=== PATIENT | female | born 1940 | race African-American/Black ===

== ENCOUNTER 2017-07-17 22:41 | Inpatient (IN) ==
[2017-07-17 23:21] LABS: Basophils # 0.1 10*3/uL (0.0-0.2); Basophils % 0.8 % (0.0-0.8); Eosinophils # 0.1 10*3/uL (0.0-0.87); Eosinophils % 2.1 % (0.00-10.9); Hematocrit 33.9 VOL% (35.7-47.0); Hemoglobin 11.8 GM/DL (12.0-16.0); Immature Granulocytes % 0.3 %; Immature Granulocytes Absolute 0.02 #; Lymphocytes # 1.6 10*3/uL (1.4-4.0); Lymphocytes % 24.8 % (21.3-54.2); Mean Corpuscular HGB Conc 34.8 GM/DL (32-36); Mean Corpuscular Hemoglobin 26 PG (27-34); Mean Platelet Volume 12.7 FL (9.6-12.0); Monocytes # 0.5 10*3/uL (0.11-0.8); Monocytes % 7.7 % (1.7-12.7); Neutrophils # 4.2 10*3/uL (1.4-7.4); Neutrophils % 64.3 % (38.7-73.9); Platelet Count 163 T/CUMM (130-400); Red Blood Count 4.58 MC/CUMM (3.8-5.5); Red Cell Distribution Width 14.6 % (9.3-17.3); White Blood Count 6.5 T/CUMM (4-12)
[2017-07-17 23:33] LABS: Blood Urea Nitrogen 12 MG/DL (7-18); Calcium 8.6 MG/DL (8.5-10.1); Glucose 78 MG/DL (74-106); Osmolality,Calculated 275.5 MOS/KG (273-304); Potassium 3.3 MMOL/L (3.5-5.1); Sodium 139 MMOL/L (136-145); Troponin I Only < 0.015 NG/ML (0.00-0.045)
[2017-07-18] MEDS ORDERED: GLUCAGON 1 MG VIAL IM PRN (04:07)
[2017-07-18] MEDS ORDERED: CLOPIDOGREL 75 MG TABLET PO STA (04:07)
[2017-07-18] MEDS ORDERED: ACETAMINOPHEN 325 MG TABLET PO PRN (04:07)
[2017-07-18] MEDS ORDERED: ONDANSETRON 4 MG/2 ML VIAL IV PRN (04:07)
[2017-07-18] MEDS ORDERED: DEXTROSE 50% 25 GM/50 ML VIAL IV PRN (04:07)
[2017-07-18] MEDS: POTASSIUM CHLORIDE 20 MEQ TABLET PO PRN ×2 (05:14→09:14)
[2017-07-18] MEDS: ENOXAPARIN 40 MG/0.4 ML SYRINGE SUBCUT SCH (05:15)
[2017-07-18] MEDS ORDERED: INFLUENZA VIRUS VACCINE 0.5 ML SYRINGE IM ONE (05:48)
[2017-07-18] MEDS ORDERED: NITROGLYCERIN SL 0.4 MG TABLET SL PRN (10:42)
[2017-07-18] MEDS ORDERED: ALBUTEROL 2.5 MG/3 ML NEB RESP TX PRN (10:42)
[2017-07-18] MEDS ORDERED: TOPIRAMATE 100 MG TABLET PO ONE (13:48)
[2017-07-18] MEDS ORDERED: levETIRAcetam 500 MG TABLET PO ONE (13:49)
[2017-07-18] MEDS ORDERED: lamoTRIgine 25 MG TABLET PO ONE (13:50)
[2017-07-18] MEDS: PRIMIDONE 50 MG TABLET PO SCH ×2 (14:34→21:23)
[2017-07-18] MEDS ORDERED: LORazepam 2 MG/1 ML VIAL IV PRN (15:00)
[2017-07-18] MEDS: GABAPENTIN 600 MG TABLET PO SCH ×2 (16:15→21:10)
[2017-07-18] MEDS: Acarbose 100 MG PO SCH (20:20)
[2017-07-18] MEDS ORDERED: BUDESONIDE/FORMOTEROL 80-4.5 INHALER 6.9 GM INH SCH (21:00)
[2017-07-18] MEDS: FOLIC ACID 0.4 MG TABLET PO SCH (21:06)
[2017-07-18] MEDS: levETIRAcetam 500 MG TABLET PO SCH (21:06)
[2017-07-18] MEDS: TOPIRAMATE 100 MG TABLET PO SCH (21:09)
[2017-07-18] MEDS: BRIMONIDINE 0.15% OPH SOLN 1 DROP/DROPS BOTTLE BOTH EYES SCH (21:16)
[2017-07-18] MEDS: TRAVOPROST 0.004% OPH SOLN 2.5 ML BOTTLE BOTH EYES SCH (21:25)
[2017-07-19] MEDS: ENOXAPARIN 40 MG/0.4 ML SYRINGE SUBCUT SCH (05:11)
[2017-07-19 05:18] LABS: Basophils # 0.1 10*3/uL (0.0-0.2); Basophils % 1.1 % (0.0-0.8); Eosinophils # 0.2 10*3/uL (0.0-0.87); Eosinophils % 3.5 % (0.00-10.9); Hematocrit 31.2 VOL% (35.7-47.0); Immature Granulocytes % 0.2 %; Immature Granulocytes Absolute 0.01 #; Lymphocytes # 1.5 10*3/uL (1.4-4.0); Lymphocytes % 32.2 % (21.3-54.2); Mean Corpuscular HGB Conc 35.3 GM/DL (32-36); Mean Corpuscular Hemoglobin 26 PG (27-34); Mean Corpuscular Volume 73.9 FL (87-102); Mean Platelet Volume 11.6 FL (9.6-12.0); Monocytes # 0.3 10*3/uL (0.11-0.8); Monocytes % 7.1 % (1.7-12.7); Neutrophils # 2.5 10*3/uL (1.4-7.4); Neutrophils % 55.9 % (38.7-73.9); Platelet Count 133 T/CUMM (130-400); Red Blood Count 4.22 MC/CUMM (3.8-5.5); Red Cell Distribution Width 14.7 % (9.3-17.3); White Blood Count 4.5 T/CUMM (4-12)
[2017-07-19 06:15] LABS: Alanine Aminotransferase 11 U/L (13-56); Albumin 2.9 G/DL (3.4-5.0); Alkaline Phosphatase 77 U/L (45-117); Aspartate Amino Transferase 19 U/L (0-37); Bilirubin,Total < 0.39 MG/DL (0.2-1.0); Blood Urea Nitrogen 11 MG/DL (7-18); Calcium 8.2 MG/DL (8.5-10.1); Glucose 82 MG/DL (74-106); Magnesium 2.1 MG/DL (1.8-2.4); Osmolality,Calculated 280.1 MOS/KG (273-304); Potassium 3.9 MMOL/L (3.5-5.1); Sodium 142 MMOL/L (136-145); Thyroid Stimulating Hormone 0.851 uIU/ml (0.358-3.74); Total Protein 5.3 G/DL (6.4-8.3)
[2017-07-19] MEDS: Acarbose 100 MG PO SCH ×4 (08:10→20:59)
[2017-07-19] MEDS: BUDESONIDE/FORMOTEROL 80-4.5 INHALER 6.9 GM INH SCH ×2 (09:35→21:02)
[2017-07-19] MEDS: BRIMONIDINE 0.15% OPH SOLN 1 DROP/DROPS BOTTLE BOTH EYES SCH ×2 (09:35→21:00)
[2017-07-19] MEDS: TOPIRAMATE 100 MG TABLET PO SCH ×2 (09:36→21:02)
[2017-07-19] MEDS: CHOLECALCIFEROL 1,000 UNIT TABLET PO SCH (09:36)
[2017-07-19] MEDS: DULoxetine 30 MG CAPSULE PO SCH (09:37)
[2017-07-19] MEDS: FOLIC ACID 0.4 MG TABLET PO SCH ×2 (09:37→21:00)
[2017-07-19] MEDS: GABAPENTIN 600 MG TABLET PO SCH ×3 (09:37→21:00)
[2017-07-19] MEDS: ASPIRIN EC 325 MG TABLET PO SCH (09:37)
[2017-07-19] MEDS: lamoTRIgine 25 MG TABLET PO SCH (09:37)
[2017-07-19] MEDS: PRIMIDONE 50 MG TABLET PO SCH ×3 (09:37→21:01)
[2017-07-19] MEDS: levETIRAcetam 500 MG TABLET PO SCH ×2 (09:37→21:01)
[2017-07-19] MEDS: TRAVOPROST 0.004% OPH SOLN 2.5 ML BOTTLE BOTH EYES SCH ×2 (21:02→21:11)
[2017-07-20] MEDS: ENOXAPARIN 40 MG/0.4 ML SYRINGE SUBCUT SCH (06:58)
[2017-07-20] MEDS: Acarbose 100 MG PO SCH ×5 (09:20→20:51)
[2017-07-20] MEDS: BRIMONIDINE 0.15% OPH SOLN 1 DROP/DROPS BOTTLE BOTH EYES SCH ×2 (09:21→20:51)
[2017-07-20] MEDS: DULoxetine 30 MG CAPSULE PO SCH (09:22)
[2017-07-20] MEDS: ASPIRIN EC 325 MG TABLET PO SCH (09:22)
[2017-07-20] MEDS: levETIRAcetam 500 MG TABLET PO SCH ×2 (09:23→20:51)
[2017-07-20] MEDS: lamoTRIgine 25 MG TABLET PO SCH (09:23)
[2017-07-20] MEDS: FOLIC ACID 0.4 MG TABLET PO SCH ×2 (09:23→20:50)
[2017-07-20] MEDS: PRIMIDONE 50 MG TABLET PO SCH ×3 (09:24→20:50)
[2017-07-20] MEDS: GABAPENTIN 600 MG TABLET PO SCH ×3 (09:24→20:50)
[2017-07-20] MEDS: BUDESONIDE/FORMOTEROL 80-4.5 INHALER 6.9 GM INH SCH ×2 (09:24→20:51)
[2017-07-20] MEDS: CHOLECALCIFEROL 1,000 UNIT TABLET PO SCH (09:25)
[2017-07-20] MEDS: TOPIRAMATE 100 MG TABLET PO SCH ×2 (09:25→20:50)
[2017-07-20] MEDS: TRAVOPROST 0.004% OPH SOLN 2.5 ML BOTTLE BOTH EYES SCH (20:52)
[2017-07-21 02:42] LABS: Basophils # 0.1 10*3/uL (0.0-0.2); Eosinophils # 0.2 10*3/uL (0.0-0.87); Eosinophils % 2.9 % (0.00-10.9); Hematocrit 30.9 VOL% (35.7-47.0); Immature Granulocytes % 0.2 %; Immature Granulocytes Absolute 0.01 #; Lymphocytes % 37.6 % (21.3-54.2); Mean Corpuscular HGB Conc 35.6 GM/DL (32-36); Mean Corpuscular Hemoglobin 26 PG (27-34); Mean Corpuscular Volume 73.4 FL (87-102); Mean Platelet Volume 12.5 FL (9.6-12.0); Monocytes # 0.4 10*3/uL (0.11-0.8); Monocytes % 7.3 % (1.7-12.7); Neutrophils # 2.6 10*3/uL (1.4-7.4); Platelet Count 149 T/CUMM (130-400); Red Blood Count 4.21 MC/CUMM (3.8-5.5); Red Cell Distribution Width 14.6 % (9.3-17.3); White Blood Count 5.2 T/CUMM (4-12)
[2017-07-21 03:08] LABS: Calcium 8.4 MG/DL (8.5-10.1); Osmolality,Calculated 272.7 MOS/KG (273-304)
[2017-07-21] MEDS: Acarbose 100 MG PO SCH ×3 (07:56→16:52)
[2017-07-21] MEDS: ENOXAPARIN 40 MG/0.4 ML SYRINGE SUBCUT SCH (10:48)
[2017-07-21] MEDS: DULoxetine 30 MG CAPSULE PO SCH (10:49)
[2017-07-21] MEDS: CHOLECALCIFEROL 1,000 UNIT TABLET PO SCH (10:49)
[2017-07-21] MEDS: lamoTRIgine 25 MG TABLET PO SCH (10:50)
[2017-07-21] MEDS: TOPIRAMATE 100 MG TABLET PO SCH (10:50)
[2017-07-21] MEDS: BUDESONIDE/FORMOTEROL 80-4.5 INHALER 6.9 GM INH SCH (10:50)
[2017-07-21] MEDS: BRIMONIDINE 0.15% OPH SOLN 1 DROP/DROPS BOTTLE BOTH EYES SCH (10:50)
[2017-07-21] MEDS: ASPIRIN EC 325 MG TABLET PO SCH (10:50)
[2017-07-21] MEDS: GABAPENTIN 600 MG TABLET PO SCH ×2 (10:50→15:51)
[2017-07-21] MEDS: levETIRAcetam 500 MG TABLET PO SCH (10:51)
[2017-07-21] MEDS: PRIMIDONE 50 MG TABLET PO SCH ×2 (10:51→15:51)
[2017-07-21] MEDS: FOLIC ACID 0.4 MG TABLET PO SCH (10:51)
[2017-07-21] MEDS ORDERED: INFLUENZA VIRUS VACCINE 0.5 ML SYRINGE IM ONE (16:14)
[2017-07-21 17:29] VITALS: BP 108/64
== END 2017-07-21 18:20 | disposition home health service (06) | DRG 880 ==
LOC: EDBD → EDUNIT# → N.ED 22:41 → N.EDINP 07-18 01:53 → SUATTDRO 07-18 01:53 → N.TELES 07-18 02:16 → N.ICU 07-18 14:50 → N.2E 07-19 21:26
PROVIDERS: ADMIT Internal Medicine; ATTEND Internal Medicine Cardiovascular Disease

== ENCOUNTER 2017-10-17 14:02 | Inpatient (IN) ==
[2017-10-17 15:38] LABS: Basophils # 0.1 10*3/uL (0.0-0.2); Basophils % 0.8 % (0.0-0.8); Eosinophils # 0.2 10*3/uL (0.0-0.87); Hematocrit 30.3 VOL% (35.7-47.0); Hemoglobin 10.4 GM/DL (12.0-16.0); Immature Granulocytes % 0.3 %; Immature Granulocytes Absolute 0.02 #; Lymphocytes # 1.4 10*3/uL (1.4-4.0); Lymphocytes % 19.5 % (21.3-54.2); Mean Corpuscular HGB Conc 34.3 GM/DL (32-36); Mean Corpuscular Hemoglobin 26 PG (27-34); Mean Corpuscular Volume 74.3 FL (87-102); Mean Platelet Volume 12.2 FL (9.6-12.0); Monocytes # 0.5 10*3/uL (0.11-0.8); Monocytes % 6.8 % (1.7-12.7); Neutrophils # 5.1 10*3/uL (1.4-7.4); Neutrophils % 69.6 % (38.7-73.9); Platelet Count 132 T/CUMM (130-400); Red Blood Count 4.08 MC/CUMM (3.8-5.5); Red Cell Distribution Width 16.5 % (9.3-17.3); White Blood Count 7.3 T/CUMM (4-12)
[2017-10-17 15:44] LABS: PT Patient Result 10.4 SECS; Partial Thromboplastin Time 30.3 SECS (0-40)
[2017-10-17 15:57] LABS: Alanine Aminotransferase 13 U/L (13-56); Albumin 3.2 G/DL (3.4-5.0); Alkaline Phosphatase 82 U/L (45-117); Aspartate Amino Transferase 17 U/L (0-37); Bilirubin,Total < 0.39 MG/DL (0.2-1.0); Blood Urea Nitrogen 7 MG/DL (7-18); Calcium 8.6 MG/DL (8.5-10.1); Glucose 83 MG/DL (74-106); Osmolality,Calculated 275.4 MOS/KG (273-304); Potassium 4.1 MMOL/L (3.5-5.1); Sodium 140 MMOL/L (136-145); Total Protein 6.1 G/DL (6.4-8.3)
[2017-10-17] MEDS ORDERED: LABETALOL 20 MG/4 ML SYRINGE IV PRN (16:23)
[2017-10-17] MEDS ORDERED: CETIRIZINE 10 MG TABLET PO PRN (16:31)
[2017-10-17] MEDS ORDERED: diphenhydrAMINE CAP 25 MG CAPSULE PO PRN (16:31)
[2017-10-17] MEDS ORDERED: CALCIUM CARBONATE CHEW 500 MG TABLET PO PRN (16:31)
[2017-10-17] MEDS ORDERED: ALBUTEROL 2.5 MG/3 ML NEB RESP TX PRN (16:31)
[2017-10-17] MEDS ORDERED: CHLORPHENIRAMINE MALEATE 4 MG PO PRN (16:31)
[2017-10-17 18:09] LABS: Apearance,Urine CLEAR (Clear); Bilirubin,Urine Negative (Negative); Blood, Urine Negative (Negative); Glucose,Urine (UA) Negative (Negative); Ketones,Urine Negative (Negative); Nitrite,Urine Negative (Negative); Protein,Urine Negative; RBC,Urine <1 /HPF (0-4); Squamous Epithelial Cell,Urine Occasional /HPF (0-10); Urine Color Colorless (Yellow); Urine Specific Gravity 1.002 (1.001-1.035); Urine Urobilinogen < 2.0 EU/DL (0.2-1.0)
[2017-10-17 18:14] LABS: Barbiturates Screen,Urine Positive (Negative); Benzodiazepines Screen,Urine Negative (Negative); Cannabinoid Screen,Urine Negative (Negative); Opiate Screen,Urine Negative (Negative); Phencyclidine Screen,Urine Negative (Negative)
[2017-10-17] MEDS ORDERED: Acarbose 100 MG PO SCH (21:00)
[2017-10-17] MEDS: POTASSIUM CHLORIDE 10 MEQ TABLET PO SCH (22:21)
[2017-10-17] MEDS: levETIRAcetam 500 MG TABLET PO SCH (22:21)
[2017-10-17] MEDS: ROSUVASTATIN 10 MG TABLET PO SCH (22:21)
[2017-10-17] MEDS: BRIMONIDINE 0.15% OPH SOLN 1 DROP/DROPS BOTTLE BOTH EYES SCH (22:21)
[2017-10-17] MEDS: GABAPENTIN 300 MG CAPSULE PO SCH (22:22)
[2017-10-17] MEDS: PANTOPRAZOLE 40 MG TABLET PO SCH (22:22)
[2017-10-17] MEDS: PRIMIDONE 50 MG TABLET PO SCH (22:22)
[2017-10-17] MEDS: BUDESONIDE/FORMOTEROL 80-4.5 INHALER 6.9 GM INH SCH (22:23)
[2017-10-17] MEDS: TOPIRAMATE 200 MG TABLET PO SCH (22:23)
[2017-10-17] MEDS: SODIUM CHLORIDE 0.9% 1,000 ML IV SCH (23:39)
[2017-10-17] MEDS: ENOXAPARIN 40 MG/0.4 ML SYRINGE SUBCUT SCH (23:39)
[2017-10-18 05:10] LABS: Basophils % 0.7 % (0.0-0.8); Eosinophils # 0.3 10*3/uL (0.0-0.87); Eosinophils % 4.1 % (0.00-10.9); Hematocrit 28.1 VOL% (35.7-47.0); Hemoglobin 9.6 GM/DL (12.0-16.0); Immature Granulocytes % 0.2 %; Immature Granulocytes Absolute 0.01 #; Lymphocytes # 1.5 10*3/uL (1.4-4.0); Mean Corpuscular HGB Conc 34.2 GM/DL (32-36); Mean Corpuscular Hemoglobin 25 PG (27-34); Mean Corpuscular Volume 74.3 FL (87-102); Mean Platelet Volume 13.1 FL (9.6-12.0); Monocytes # 0.5 10*3/uL (0.11-0.8); Monocytes % 8.9 % (1.7-12.7); Neutrophils # 3.7 10*3/uL (1.4-7.4); Neutrophils % 61.1 % (38.7-73.9); Platelet Count 125 T/CUMM (130-400); Red Blood Count 3.78 MC/CUMM (3.8-5.5); Red Cell Distribution Width 16.2 % (9.3-17.3); White Blood Count 6.1 T/CUMM (4-12)
[2017-10-18 06:00] LABS: Hypochromasia 1+; Microcytosis 1+; Ovalocytes Slight; Target Cells Slight
[2017-10-18 06:01] LABS: Acanthocytes Few; Platelet Estimate Normal
[2017-10-18 06:06] LABS: Risk Ratio 1.24; VLDL CHOLESTEROL 5.4 MG/DL
[2017-10-18 06:07] LABS: Calcium 7.9 MG/DL (8.5-10.1); Osmolality,Calculated 282.8 MOS/KG (273-304); Potassium 3.5 MMOL/L (3.5-5.1)
[2017-10-18] MEDS: POTASSIUM CHLORIDE 10 MEQ TABLET PO SCH ×2 (12:19→21:58)
[2017-10-18] MEDS: ASPIRIN 325 MG TABLET PO SCH (12:19)
[2017-10-18] MEDS: lamoTRIgine 25 MG TABLET PO SCH (12:19)
[2017-10-18] MEDS: PRIMIDONE 50 MG TABLET PO SCH ×3 (12:19→21:57)
[2017-10-18] MEDS: levETIRAcetam 500 MG TABLET PO SCH ×2 (12:19→21:57)
[2017-10-18] MEDS: GABAPENTIN 300 MG CAPSULE PO SCH ×3 (12:20→21:57)
[2017-10-18] MEDS: BRIMONIDINE 0.15% OPH SOLN 1 DROP/DROPS BOTTLE BOTH EYES SCH ×2 (12:20→21:58)
[2017-10-18] MEDS: BUDESONIDE/FORMOTEROL 80-4.5 INHALER 6.9 GM INH SCH ×2 (12:20→21:58)
[2017-10-18] MEDS: TOPIRAMATE 200 MG TABLET PO SCH ×2 (12:20→21:58)
[2017-10-18] MEDS: ACETAMINOPHEN 325 MG TABLET PO PRN (16:35)
[2017-10-18] MEDS: PANTOPRAZOLE 40 MG TABLET PO SCH (16:36)
[2017-10-18] MEDS: SODIUM CHLORIDE 0.9% 1,000 ML IV SCH (18:53)
[2017-10-18] MEDS: ENOXAPARIN 40 MG/0.4 ML SYRINGE SUBCUT SCH (21:57)
[2017-10-18] MEDS: ROSUVASTATIN 10 MG TABLET PO SCH (21:57)
[2017-10-19] MEDS ORDERED: LORazepam 2 MG/1 ML VIAL IV PRN (10:31)
[2017-10-19] MEDS: PRIMIDONE 50 MG TABLET PO SCH ×4 (10:51→22:07)
[2017-10-19] MEDS: ASPIRIN 325 MG TABLET PO SCH (10:51)
[2017-10-19] MEDS: TOPIRAMATE 200 MG TABLET PO SCH ×2 (10:51→21:51)
[2017-10-19] MEDS: ACETAMINOPHEN 325 MG TABLET PO PRN (10:52)
[2017-10-19] MEDS: GABAPENTIN 300 MG CAPSULE PO SCH ×3 (10:53→21:51)
[2017-10-19] MEDS: lamoTRIgine 25 MG TABLET PO SCH (10:53)
[2017-10-19] MEDS: levETIRAcetam 500 MG TABLET PO SCH ×2 (10:53→21:53)
[2017-10-19] MEDS: BRIMONIDINE 0.15% OPH SOLN 1 DROP/DROPS BOTTLE BOTH EYES SCH ×2 (10:53→21:51)
[2017-10-19] MEDS: POTASSIUM CHLORIDE 10 MEQ TABLET PO SCH ×2 (10:53→21:52)
[2017-10-19] MEDS: BUDESONIDE/FORMOTEROL 80-4.5 INHALER 6.9 GM INH SCH ×2 (10:54→21:54)
[2017-10-19 12:28] LABS: Hematocrit 29.4 VOL% (35.7-47.0); Hemoglobin 10.5 GM/DL (12.0-16.0); Mean Corpuscular HGB Conc 35.7 GM/DL (32-36); Mean Corpuscular Hemoglobin 26 PG (27-34); Mean Corpuscular Volume 72.6 FL (87-102); Platelet Count 146 T/CUMM (130-400); Red Blood Count 4.05 MC/CUMM (3.8-5.5); Red Cell Distribution Width 16.5 % (9.3-17.3); White Blood Count 6.9 T/CUMM (4-12)
[2017-10-19 12:29] LABS: Basophils % 0.4 % (0.0-0.8); Eosinophils # 0.1 10*3/uL (0.0-0.87); Eosinophils % 1.2 % (0.00-10.9); Immature Granulocytes % 0.4 %; Immature Granulocytes Absolute 0.03 #; Lymphocytes % 14.6 % (21.3-54.2); Mean Platelet Volume 11.9 FL (9.6-12.0); Monocytes # 0.5 10*3/uL (0.11-0.8); Monocytes % 6.9 % (1.7-12.7); Neutrophils # 5.3 10*3/uL (1.4-7.4); Neutrophils % 76.5 % (38.7-73.9)
[2017-10-19 12:53] LABS: Calcium 8.6 MG/DL (8.5-10.1); Osmolality,Calculated 277.3 MOS/KG (273-304); Potassium 3.6 MMOL/L (3.5-5.1)
[2017-10-19] MEDS: PANTOPRAZOLE 40 MG TABLET PO SCH (16:22)
[2017-10-19] MEDS: ENOXAPARIN 40 MG/0.4 ML SYRINGE SUBCUT SCH (21:51)
[2017-10-19] MEDS: ROSUVASTATIN 10 MG TABLET PO SCH (21:53)
[2017-10-20] MEDS: levETIRAcetam 500 MG TABLET PO SCH (09:32)
[2017-10-20] MEDS: ASPIRIN 325 MG TABLET PO SCH (09:32)
[2017-10-20] MEDS: PRIMIDONE 50 MG TABLET PO SCH (09:33)
[2017-10-20] MEDS: POTASSIUM CHLORIDE 10 MEQ TABLET PO SCH (09:33)
[2017-10-20] MEDS: TOPIRAMATE 200 MG TABLET PO SCH (09:33)
[2017-10-20] MEDS: lamoTRIgine 25 MG TABLET PO SCH (09:33)
[2017-10-20] MEDS: GABAPENTIN 300 MG CAPSULE PO SCH (09:33)
[2017-10-20] MEDS: BUDESONIDE/FORMOTEROL 80-4.5 INHALER 6.9 GM INH SCH (09:34)
[2017-10-20] MEDS: BRIMONIDINE 0.15% OPH SOLN 1 DROP/DROPS BOTTLE BOTH EYES SCH (09:34)
[2017-10-20 12:44] VITALS: BP 114/67
== END 2017-10-20 14:45 | disposition home or self-care (01) | DRG 101 ==
LOC: N.ED 14:02 → N.EDINP 15:50 → SUATTDRO 15:50 → N.TELES 19:47
PROVIDERS: ADMIT Internal Medicine; ATTEND Hospitalist

== ENCOUNTER 2018-01-07 19:51 | Inpatient (IN) ==
[2018-01-07] MEDS ORDERED: SODIUM CHLORIDE 0.9% 500 ML IV STA (22:13)
[2018-01-07 23:25] LABS: Apearance,Urine CLEAR (Clear); Bilirubin,Urine Negative (Negative); Blood, Urine Negative (Negative); Glucose,Urine (UA) Negative (Negative); Ketones,Urine Negative (Negative); Nitrite,Urine Negative (Negative); Protein,Urine Negative; RBC,Urine <1 /HPF (0-4); Squamous Epithelial Cell,Urine Occasional /HPF (0-10); Urine Color Colorless (Yellow); Urine Specific Gravity 1.003 (1.001-1.035); Urine Urobilinogen < 2.0 EU/DL (0.2-1.0); WBC,Urine 1 /HPF (0-6)
[2018-01-07 23:57] LABS: Basophils % 0.8 % (0.0-0.8); Eosinophils # 0.3 10*3/uL (0.0-0.87); Eosinophils % 6.6 % (0.00-10.9); Hematocrit 35.2 VOL% (35.7-47.0); Hemoglobin 11.8 GM/DL (12.0-16.0); Immature Granulocytes % 0.4 %; Immature Granulocytes Absolute 0.02 #; Lymphocytes # 1.7 10*3/uL (1.4-4.0); Lymphocytes % 33.5 % (21.3-54.2); Mean Corpuscular HGB Conc 33.5 GM/DL (32-36); Mean Corpuscular Hemoglobin 25 PG (27-34); Mean Corpuscular Volume 73.9 FL (87-102); Mean Platelet Volume 11.6 FL (9.6-12.0); Monocytes # 0.4 10*3/uL (0.11-0.8); Monocytes % 6.7 % (1.7-12.7); Neutrophils # 2.7 10*3/uL (1.4-7.4); Platelet Count 154 T/CUMM (130-400); Red Blood Count 4.76 MC/CUMM (3.8-5.5); Red Cell Distribution Width 16.2 % (9.3-17.3); White Blood Count 5.2 T/CUMM (4-12)
[2018-01-08 00:06] LABS: PT Patient Result 10.3 SECS
[2018-01-08 00:18] LABS: Alanine Aminotransferase 15 U/L (13-56); Albumin 3.9 G/DL (3.4-5.0); Alkaline Phosphatase 94 U/L (45-117); Aspartate Amino Transferase 19 U/L (0-37); Bilirubin,Total < 0.39 MG/DL (0.2-1.0); Blood Urea Nitrogen 8 MG/DL (7-18); Calcium 8.7 MG/DL (8.5-10.1); Glucose 86 MG/DL (74-106); Osmolality,Calculated 277.3 MOS/KG (273-304); Potassium 3.4 MMOL/L (3.5-5.1); Sodium 141 MMOL/L (136-145); Total Protein 7.4 G/DL (6.4-8.3)
[2018-01-08] MEDS ORDERED: POTASSIUM CHLORIDE 20 MEQ TABLET PO STA (00:25)
[2018-01-08 00:26] LABS: Prolactin 8.3 NG/ML
[2018-01-08 00:31] LABS: Hypochromasia Slight; Microcytosis 1+; Target Cells Few
[2018-01-08 00:34] LABS: Free T4 (Free Thyroxine) 0.62 NG/DL (0.76-1.46); Thyroid Stimulating Hormone 2.31 uIU/ml (0.358-3.74)
[2018-01-08 00:38] LABS: Platelet Estimate Normal
[2018-01-08] MEDS ORDERED: ACETAMINOPHEN 500 MG TABLET PO STA (01:14)
[2018-01-08] MEDS ORDERED: CALCIUM CARBONATE CHEW 500 MG TABLET PO PRN (04:34)
[2018-01-08] MEDS ORDERED: GLUCAGON 1 MG VIAL IM PRN (04:34)
[2018-01-08] MEDS ORDERED: ONDANSETRON 4 MG/2 ML VIAL IV PRN (04:34)
[2018-01-08] MEDS ORDERED: MAGNESIUM SULF RIDER 2 GM in PREMIX 1 EACH IV PRN (04:34)
[2018-01-08] MEDS ORDERED: CHLORPHENIRAMINE MALEATE 4 MG PO PRN (04:34)
[2018-01-08] MEDS ORDERED: ACETAMINOPHEN PO PRN (04:34)
[2018-01-08] MEDS ORDERED: DEXTROSE 50% 25 GM/50 ML VIAL IV PRN (04:34)
[2018-01-08] MEDS ORDERED: ALBUTEROL 2.5 MG/3 ML NEB RESP TX PRN (04:34)
[2018-01-08] MEDS ORDERED: POTASSIUM CHLORIDE 20 MEQ TABLET PO PRN (04:34)
[2018-01-08] MEDS ORDERED: NITROGLYCERIN SL 0.4 MG TABLET SL PRN (04:34)
[2018-01-08] MEDS ORDERED: CAFFEINE PO PRN (04:34)
[2018-01-08] MEDS ORDERED: ASPIRIN PO PRN (04:34)
[2018-01-08] MEDS ORDERED: MAGNESIUM SULF RIDER 4 GM in PREMIX 1 EACH IV PRN (04:34)
[2018-01-08 05:19] LABS: Troponin I Only < 0.015 NG/ML (0.00-0.045)
[2018-01-08] MEDS: SODIUM CHLORIDE 0.9% 1,000 ML IV SCH ×2 (06:43→18:36)
[2018-01-08] MEDS: INSULIN REGULAR 100 UNIT/ML SUBCUT SCH ×4 (08:30→20:45)
[2018-01-08] MEDS ORDERED: ACARBOSE 100 MG PO SCH (09:00)
[2018-01-08] MEDS: TOPIRAMATE 200 MG TABLET PO SCH ×2 (10:00→20:41)
[2018-01-08] MEDS: BRIMONIDINE 0.15% OPH SOLN 1 DROP/DROPS BOTTLE BOTH EYES SCH ×2 (10:00→20:41)
[2018-01-08] MEDS: PRIMIDONE 50 MG TABLET PO SCH ×2 (10:00→20:40)
[2018-01-08] MEDS: CHOLECALCIFEROL 1,000 UNIT TABLET PO SCH (10:00)
[2018-01-08] MEDS: ASPIRIN EC 325 MG TABLET PO SCH (10:00)
[2018-01-08] MEDS: POTASSIUM CHLORIDE 10 MEQ TABLET PO SCH ×2 (10:00→20:41)
[2018-01-08] MEDS: levETIRAcetam 500 MG TABLET PO SCH ×2 (10:00→20:41)
[2018-01-08] MEDS: BUDESONIDE/FORMOTEROL 80-4.5 INHALER 6.9 GM INH SCH ×2 (10:00→20:42)
[2018-01-08] MEDS: CYANOCOBALAMIN 500 MCG TABLET PO SCH (10:00)
[2018-01-08] MEDS: GABAPENTIN 300 MG CAPSULE PO SCH ×2 (10:00→20:40)
[2018-01-08 13:46] LABS: Troponin I Only < 0.015 NG/ML (0.00-0.045)
[2018-01-08] MEDS: PANTOPRAZOLE 40 MG TABLET PO SCH (16:21)
[2018-01-08] MEDS: ACETAMINOPHEN 325 MG TABLET PO PRN (16:21)
[2018-01-08] MEDS ORDERED: diphenhydrAMINE CAP 25 MG CAPSULE PO PRN (16:46)
[2018-01-08] MEDS ORDERED: MAGNESIUM HYDROXIDE SUSP 30 ML UDCUP PO PRN (16:46)
[2018-01-08] MEDS: ACARBOSE 100 MG PO SCH (17:47)
[2018-01-08] MEDS ORDERED: ROSUVASTATIN 10 MG TABLET PO SCH (21:00)
[2018-01-08 21:49] LABS: Troponin I Only < 0.015 NG/ML (0.00-0.045)
[2018-01-09 05:22] LABS: Basophils % 0.7 % (0.0-0.8); Eosinophils # 0.2 10*3/uL (0.0-0.87); Eosinophils % 4.4 % (0.00-10.9); Hemoglobin 9.8 GM/DL (12.0-16.0); Immature Granulocytes % 0.2 %; Immature Granulocytes Absolute 0.01 #; Lymphocytes # 1.6 10*3/uL (1.4-4.0); Lymphocytes % 30.3 % (21.3-54.2); Mean Corpuscular HGB Conc 33.8 GM/DL (32-36); Mean Corpuscular Hemoglobin 25 PG (27-34); Mean Corpuscular Volume 73.6 FL (87-102); Mean Platelet Volume 11.9 FL (9.6-12.0); Monocytes # 0.4 10*3/uL (0.11-0.8); Neutrophils # 3.1 10*3/uL (1.4-7.4); Neutrophils % 57.4 % (38.7-73.9); Platelet Count 127 T/CUMM (130-400); Red Blood Count 3.94 MC/CUMM (3.8-5.5); Red Cell Distribution Width 16.1 % (9.3-17.3); White Blood Count 5.4 T/CUMM (4-12)
[2018-01-09 05:45] LABS: Giant Platelets Few; Hypochromasia 1+; Microcytosis Slight; Ovalocytes Slight; Platelet Estimate Normal
[2018-01-09 05:59] LABS: Bilirubin,Total 0.6 MG/DL (0.2-1.0); Calcium 8.2 MG/DL (8.5-10.1); Osmolality,Calculated 283.8 MOS/KG (273-304); Potassium 3.7 MMOL/L (3.5-5.1); Risk Ratio 1.49; Total Protein 5.4 G/DL (6.4-8.3); VLDL CHOLESTEROL 8.6 MG/DL
[2018-01-09] MEDS: INSULIN REGULAR 100 UNIT/ML SUBCUT SCH ×3 (07:12→16:02)
[2018-01-09] MEDS: SODIUM CHLORIDE 0.9% 1,000 ML IV SCH (08:00)
[2018-01-09] MEDS ORDERED: LIDOCAINE 1%/EPI INJ 20 ML VIAL ONE (08:08)
[2018-01-09] MEDS ORDERED: TISSUE ADHESIVE 1 EACH APPLICATOR TOP ONE (08:08)
[2018-01-09] MEDS: ACARBOSE 100 MG PO SCH ×3 (08:43→17:05)
[2018-01-09] MEDS ORDERED: HYDROmorphone 2 MG/1 ML VIAL ONE (08:46)
[2018-01-09] MEDS ORDERED: HYDROmorphone 2 MG/1 ML VIAL IV ONE (08:47)
[2018-01-09] MEDS ORDERED: MIDAZOLAM 2 MG/2 ML VIAL IV ONE (08:47)
[2018-01-09] MEDS ORDERED: MIDAZOLAM 2 MG/2 ML VIAL ONE (08:47)
[2018-01-09 09:03] LABS: Folate 5.6 NG/ML (5.4-24.0)
[2018-01-09] MEDS: ASPIRIN EC 325 MG TABLET PO SCH (09:55)
[2018-01-09] MEDS: CYANOCOBALAMIN 500 MCG TABLET PO SCH (09:55)
[2018-01-09] MEDS: levETIRAcetam 500 MG TABLET PO SCH (09:55)
[2018-01-09] MEDS: PRIMIDONE 50 MG TABLET PO SCH (09:55)
[2018-01-09] MEDS: TOPIRAMATE 200 MG TABLET PO SCH (09:55)
[2018-01-09] MEDS: CHOLECALCIFEROL 1,000 UNIT TABLET PO SCH (09:55)
[2018-01-09] MEDS: GABAPENTIN 300 MG CAPSULE PO SCH (09:55)
[2018-01-09] MEDS: POTASSIUM CHLORIDE 10 MEQ TABLET PO SCH (09:56)
[2018-01-09] MEDS: BUDESONIDE/FORMOTEROL 80-4.5 INHALER 6.9 GM INH SCH (09:59)
[2018-01-09] MEDS: BRIMONIDINE 0.15% OPH SOLN 1 DROP/DROPS BOTTLE BOTH EYES SCH (10:00)
[2018-01-09] MEDS: ACETAMINOPHEN 325 MG TABLET PO PRN (10:05)
[2018-01-09 16:02] VITALS: BP 144/73
[2018-01-09] MEDS: PANTOPRAZOLE 40 MG TABLET PO SCH (17:05)
== END 2018-01-09 18:53 | disposition home health service (06) | DRG 262 ==
LOC: N.ED 19:51 → N.EDINP 01-08 00:53 → N.CC 01-08 05:29
PROVIDERS: ADMIT Internal Medicine Cardiovascular Disease; ATTEND Internal Medicine Cardiovascular Disease

== ENCOUNTER 2018-03-30 09:01 | Inpatient (IN) ==
[2018-03-30] MEDS ORDERED: SODIUM CHLORIDE 0.9% 1,000 ML IV STA (10:51)
[2018-03-30] MEDS ORDERED: ONDANSETRON 4 MG/2 ML VIAL IV STA (10:51)
[2018-03-30 10:58] LABS: Basophils % 0.3 % (0.0-0.8); Eosinophils # 0.1 10*3/uL (0.0-0.87); Eosinophils % 0.4 % (0.00-10.9); Hematocrit 40.4 VOL% (35.7-47.0); Hemoglobin 13.8 GM/DL (12.0-16.0); Immature Granulocytes % 0.5 %; Immature Granulocytes Absolute 0.07 #; Lymphocytes # 1.5 10*3/uL (1.4-4.0); Lymphocytes % 9.4 % (21.3-54.2); Mean Corpuscular HGB Conc 34.2 GM/DL (32-36); Mean Corpuscular Hemoglobin 25 PG (27-34); Mean Corpuscular Volume 71.9 FL (87-102); Monocytes # 0.9 10*3/uL (0.11-0.8); Monocytes % 5.7 % (1.7-12.7); Neutrophils % 83.7 % (38.7-73.9); Platelet Count 115 T/CUMM (130-400); Red Blood Count 5.62 MC/CUMM (3.8-5.5); Red Cell Distribution Width 17.9 % (9.3-17.3); White Blood Count 15.5 T/CUMM (4-12)
[2018-03-30 11:16] LABS: Albumin 3.3 G/DL (3.4-5.0); Bilirubin,Total 0.6 MG/DL (0.2-1.0); Calcium 8.8 MG/DL (8.5-10.1); Potassium 4.1 MMOL/L (3.5-5.1); Total Protein 6.7 G/DL (6.4-8.3)
[2018-03-30 11:33] LABS: Hypochromasia 1+; Platelet Estimate Decreased
[2018-03-30 11:34] LABS: Microcytosis Slight
[2018-03-30 11:36] LABS: Apearance,Urine CLEAR (Clear); Bilirubin,Urine Negative (Negative); Blood, Urine Moderate mg/dL (Negative); Glucose,Urine (UA) Negative (Negative); Ketones,Urine 20 mg/dL (Negative); Mucus,Urine Occasional /LPF (Occasional); Nitrite,Urine Negative (Negative); Protein,Urine 30 MG/DL; RBC,Urine 13 /HPF (0-4); Squamous Epithelial Cell,Urine Occasional /HPF (0-10); Urine Color Yellow (Yellow); Urine Urobilinogen < 2.0 EU/DL (0.2-1.0); WBC,Urine 2 /HPF (0-6)
[2018-03-30] MEDS ORDERED: NITROGLYCERIN SL 0.4 MG TABLET SL PRN (14:28)
[2018-03-30] MEDS ORDERED: hydrALAZINE 20 MG/1 ML VIAL IV PRN (14:29)
[2018-03-30] MEDS ORDERED: MORPHINE 4 MG/1 ML VIAL IV PRN (14:30)
[2018-03-30] MEDS ORDERED: ACETAMINOPHEN 650 MG SUPP RECTAL PRN (14:31)
[2018-03-30] MEDS ORDERED: SODIUM PHOSPHATE ENEMA 133 ML BOTTLE RECTAL ONE (14:32)
[2018-03-30] MEDS ORDERED: ONDANSETRON 4 MG/2 ML VIAL IV PRN (14:32)
[2018-03-30] MEDS: DEXTROSE 5% NACL 0.45% 1,000 ML IV SCH (16:28)
[2018-03-30] MEDS: ALBUTEROL/IPRATROPIUM 3 ML NEB RESP TX SCH (19:06)
[2018-03-30] MEDS: BUDESONIDE/FORMOTEROL 80-4.5 INHALER 6.9 GM INH SCH (20:28)
[2018-03-30] MEDS: RANITIDINE 150 MG/10 ML 30 ML BOTTLE PO SCH (20:28)
[2018-03-30] MEDS: BRIMONIDINE 0.15% OPH SOLN 1 DROP/DROPS BOTTLE BOTH EYES SCH (20:28)
[2018-03-31] MEDS: ALBUTEROL/IPRATROPIUM 3 ML NEB RESP TX SCH ×4 (00:09→18:59)
[2018-03-31] MEDS: DEXTROSE 5% NACL 0.45% 1,000 ML IV SCH (05:21)
[2018-03-31 06:37] LABS: Basophils # 0.1 10*3/uL (0.0-0.2); Basophils % 0.5 % (0.0-0.8); Eosinophils # 0.2 10*3/uL (0.0-0.87); Eosinophils % 1.6 % (0.00-10.9); Hematocrit 32.4 VOL% (35.7-47.0); Immature Granulocytes % 0.5 %; Immature Granulocytes Absolute 0.05 #; Lymphocytes # 1.1 10*3/uL (1.4-4.0); Mean Corpuscular HGB Conc 34.6 GM/DL (32-36); Mean Corpuscular Hemoglobin 25 PG (27-34); Mean Corpuscular Volume 70.7 FL (87-102); Monocytes # 0.8 10*3/uL (0.11-0.8); Neutrophils # 8.9 10*3/uL (1.4-7.4); Neutrophils % 80.4 % (38.7-73.9); Red Blood Count 4.58 MC/CUMM (3.8-5.5); Red Cell Distribution Width 16.6 % (9.3-17.3)
[2018-03-31 06:42] LABS: Hemoglobin 11.2 GM/DL (12.0-16.0)
[2018-03-31 06:43] LABS: Platelet Count 89 T/CUMM (130-400)
[2018-03-31 06:58] LABS: Anisocytosis 1+; Poikilocytosis 1+
[2018-03-31 06:59] LABS: Target Cells 1+
[2018-03-31 07:11] LABS: Albumin 2.2 G/DL (3.4-5.0); Bilirubin,Total 0.7 MG/DL (0.2-1.0); Calcium 7.9 MG/DL (8.5-10.1); Osmolality,Calculated 290.4 MOS/KG (273-304); Total Protein 5.3 G/DL (6.4-8.3)
[2018-03-31] MEDS: BRIMONIDINE 0.15% OPH SOLN 1 DROP/DROPS BOTTLE BOTH EYES SCH ×2 (08:29→21:28)
[2018-03-31] MEDS: BUDESONIDE/FORMOTEROL 80-4.5 INHALER 6.9 GM INH SCH ×2 (08:29→21:28)
[2018-03-31] MEDS: RANITIDINE 150 MG/10 ML 30 ML BOTTLE PO SCH ×2 (08:33→21:29)
[2018-03-31] MEDS ORDERED: MAGNESIUM SULF RIDER 2 GM in PREMIX 1 EACH IV ONE (10:50)
[2018-03-31] MEDS: TOPIRAMATE 200 MG TABLET PO SCH ×2 (14:15→21:29)
[2018-03-31] MEDS: PRIMIDONE 50 MG TABLET PO SCH ×2 (14:15→21:29)
[2018-03-31] MEDS: ASPIRIN 300 MG SUPP RECTAL SCH (15:32)
[2018-03-31] MEDS: GABAPENTIN 50 MG/ML 30 ML/BOTTLE PO SCH ×2 (15:32→21:29)
[2018-04-01 05:27] LABS: Basophils % 0.3 % (0.0-0.8); Eosinophils # 0.3 10*3/uL (0.0-0.87); Eosinophils % 4.1 % (0.00-10.9); Hematocrit 27.7 VOL% (35.7-47.0); Hemoglobin 9.7 GM/DL (12.0-16.0); Immature Granulocytes % 0.5 %; Immature Granulocytes Absolute 0.04 #; Mean Corpuscular Hemoglobin 25 PG (27-34); Mean Corpuscular Volume 70.7 FL (87-102); Monocytes # 0.5 10*3/uL (0.11-0.8); Monocytes % 6.6 % (1.7-12.7); Neutrophils # 5.6 10*3/uL (1.4-7.4); Neutrophils % 75.5 % (38.7-73.9); Red Blood Count 3.92 MC/CUMM (3.8-5.5); Red Cell Distribution Width 16.9 % (9.3-17.3)
[2018-04-01 05:30] LABS: Platelet Count 97 T/CUMM (130-400); White Blood Count 7.4 T/CUMM (4-12)
[2018-04-01 05:54] LABS: Bilirubin,Total 0.5 MG/DL (0.2-1.0); Calcium 7.9 MG/DL (8.5-10.1); Osmolality,Calculated 291.3 MOS/KG (273-304); Potassium 2.7 MMOL/L (3.5-5.1); Total Protein 4.8 G/DL (6.4-8.3)
[2018-04-01 05:56] LABS: Anisocytosis 2+; Microcytosis 2+; Ovalocytes Few; Platelet Estimate Decreased; Target Cells 2+
[2018-04-01] MEDS: ALBUTEROL/IPRATROPIUM 3 ML NEB RESP TX SCH ×4 (07:45→19:28)
[2018-04-01] MEDS: RANITIDINE 150 MG/10 ML 30 ML BOTTLE PO SCH ×2 (08:34→22:41)
[2018-04-01] MEDS: BUDESONIDE/FORMOTEROL 80-4.5 INHALER 6.9 GM INH SCH ×2 (08:36→22:11)
[2018-04-01] MEDS: BRIMONIDINE 0.15% OPH SOLN 1 DROP/DROPS BOTTLE BOTH EYES SCH ×2 (08:36→22:11)
[2018-04-01] MEDS: PRIMIDONE 50 MG TABLET PO SCH ×2 (08:37→22:11)
[2018-04-01] MEDS: TOPIRAMATE 200 MG TABLET PO SCH ×2 (08:37→22:11)
[2018-04-01] MEDS: POTASSIUM CHLORIDE RIDER 10 MEQ in PREMIX 1 EACH IV PRN ×6 (08:38→22:10)
[2018-04-01] MEDS: ASPIRIN 300 MG SUPP RECTAL SCH (08:47)
[2018-04-01] MEDS: GABAPENTIN 50 MG/ML 30 ML/BOTTLE PO SCH ×2 (08:53→22:11)
[2018-04-01] MEDS: DEXTROSE 5% NACL 0.45% 1,000 ML IV SCH ×2 (15:48→17:28)
[2018-04-02] MEDS: ALBUTEROL/IPRATROPIUM 3 ML NEB RESP TX SCH ×4 (01:14→19:42)
[2018-04-02] MEDS: POTASSIUM CHLORIDE RIDER 10 MEQ in PREMIX 1 EACH IV PRN ×3 (01:39→14:45)
[2018-04-02 07:15] LABS: Basophils % 0.6 % (0.0-0.8); Eosinophils # 0.5 10*3/uL (0.0-0.87); Hemoglobin 9.4 GM/DL (12.0-16.0); Immature Granulocytes % 0.3 %; Immature Granulocytes Absolute 0.02 #; Lymphocytes % 14.1 % (21.3-54.2); Mean Corpuscular HGB Conc 34.8 GM/DL (32-36); Mean Corpuscular Hemoglobin 25 PG (27-34); Mean Corpuscular Volume 70.3 FL (87-102); Monocytes # 0.4 10*3/uL (0.11-0.8); Monocytes % 6.1 % (1.7-12.7); Neutrophils # 4.9 10*3/uL (1.4-7.4); Neutrophils % 71.9 % (38.7-73.9); Platelet Count 111 T/CUMM (130-400); Red Blood Count 3.84 MC/CUMM (3.8-5.5); White Blood Count 6.9 T/CUMM (4-12)
[2018-04-02 07:34] LABS: Hypochromasia 1+; Platelet Estimate Decreased
[2018-04-02 07:35] LABS: Microcytosis Slight
[2018-04-02 07:51] LABS: Albumin 2.1 G/DL (3.4-5.0); Bilirubin,Total 0.4 MG/DL (0.2-1.0); Calcium 8.1 MG/DL (8.5-10.1); Osmolality,Calculated 290.3 MOS/KG (273-304); Potassium 3.3 MMOL/L (3.5-5.1); Total Protein 5.2 G/DL (6.4-8.3)
[2018-04-02] MEDS ORDERED: PROPOFOL 200 MG/20 ML VIAL IV ONE (09:54)
[2018-04-02] MEDS ORDERED: LIDOCAINE 1% 5 ML VIAL ONE (09:54)
[2018-04-02 10:00] LABS: % Iron Saturation 18.2 % (18-50)
[2018-04-02] MEDS: DEXTROSE 5% NACL 0.45% 1,000 ML IV SCH ×2 (10:10→21:15)
[2018-04-02] MEDS: GABAPENTIN 50 MG/ML 30 ML/BOTTLE PO SCH ×2 (10:19→21:21)
[2018-04-02] MEDS: RANITIDINE 150 MG/10 ML 30 ML BOTTLE PO SCH ×2 (10:19→21:24)
[2018-04-02] MEDS: PRIMIDONE 50 MG TABLET PO SCH ×2 (10:19→21:19)
[2018-04-02] MEDS: TOPIRAMATE 200 MG TABLET PO SCH ×2 (10:19→21:20)
[2018-04-02] MEDS: BUDESONIDE/FORMOTEROL 80-4.5 INHALER 6.9 GM INH SCH ×2 (10:22→21:21)
[2018-04-02] MEDS: ASPIRIN 300 MG SUPP RECTAL SCH (10:35)
[2018-04-02] MEDS: BRIMONIDINE 0.15% OPH SOLN 1 DROP/DROPS BOTTLE BOTH EYES SCH ×2 (10:35→21:20)
[2018-04-02] MEDS: POTASSIUM CHLORIDE 20 MEQ/15 ML UDCUP PO SCH (17:01)
[2018-04-03] MEDS: ALBUTEROL/IPRATROPIUM 3 ML NEB RESP TX SCH ×4 (00:40→19:56)
[2018-04-03 08:11] LABS: Calcium 7.9 MG/DL (8.5-10.1); Osmolality,Calculated 286.4 MOS/KG (273-304); Potassium 3.6 MMOL/L (3.5-5.1)
[2018-04-03] MEDS: RANITIDINE 150 MG/10 ML 30 ML BOTTLE PO SCH ×2 (09:18→20:53)
[2018-04-03] MEDS: TOPIRAMATE 200 MG TABLET PO SCH ×2 (09:18→20:56)
[2018-04-03] MEDS: PRIMIDONE 50 MG TABLET PO SCH ×2 (09:18→20:56)
[2018-04-03] MEDS: POTASSIUM CHLORIDE 20 MEQ/15 ML UDCUP PO SCH (09:18)
[2018-04-03] MEDS: ASPIRIN 300 MG SUPP RECTAL SCH (09:18)
[2018-04-03] MEDS: GABAPENTIN 50 MG/ML 30 ML/BOTTLE PO SCH ×2 (09:18→20:52)
[2018-04-03] MEDS: BRIMONIDINE 0.15% OPH SOLN 1 DROP/DROPS BOTTLE BOTH EYES SCH ×2 (09:19→20:51)
[2018-04-03] MEDS: BUDESONIDE/FORMOTEROL 80-4.5 INHALER 6.9 GM INH SCH ×2 (09:19→20:57)
[2018-04-03] MEDS ORDERED: BUTALBITAL/ACETAMIN/CAFFEINE 50-325-40 MG TABLET PO PRN (10:52)
[2018-04-03] MEDS ORDERED: CALCIUM CARBONATE CHEW 500 MG TABLET PO PRN (10:52)
[2018-04-03] MEDS ORDERED: CHLORPHENIRAMINE MALEATE 4 MG PO PRN (10:52)
[2018-04-03] MEDS ORDERED: ALBUTEROL 2.5 MG/3 ML NEB RESP TX PRN (10:52)
[2018-04-03] MEDS: levETIRAcetam 250 MG TABLET PO SCH ×2 (11:09→20:54)
[2018-04-03] MEDS: CHOLECALCIFEROL 1,000 UNIT TABLET PO SCH (11:46)
[2018-04-03] MEDS: amLODIPine 5 MG TABLET PO SCH (11:46)
[2018-04-03] MEDS: ENOXAPARIN 40 MG/0.4 ML SYRINGE SUBCUT SCH (11:49)
[2018-04-03] MEDS: ROSUVASTATIN 10 MG TABLET PO SCH (20:56)
[2018-04-04] MEDS: ALBUTEROL/IPRATROPIUM 3 ML NEB RESP TX SCH ×4 (00:15→19:30)
[2018-04-04] MEDS ORDERED: BISACODYL 5 MG TABLET PO ONE (08:22)
[2018-04-04] MEDS: amLODIPine 5 MG TABLET PO SCH (10:01)
[2018-04-04] MEDS: CYANOCOBALAMIN 500 MCG TABLET PO SCH (10:01)
[2018-04-04] MEDS: TOPIRAMATE 200 MG TABLET PO SCH ×2 (10:01→21:58)
[2018-04-04] MEDS: ASPIRIN 325 MG TABLET PO SCH (10:01)
[2018-04-04] MEDS: PRIMIDONE 50 MG TABLET PO SCH ×2 (10:01→21:59)
[2018-04-04] MEDS: levETIRAcetam 250 MG TABLET PO SCH ×2 (10:01→21:58)
[2018-04-04] MEDS: LINACLOTIDE 145 MCG CAPSULE PO SCH (10:02)
[2018-04-04] MEDS: CHOLECALCIFEROL 1,000 UNIT TABLET PO SCH (10:02)
[2018-04-04] MEDS: BUDESONIDE/FORMOTEROL 80-4.5 INHALER 6.9 GM INH SCH ×2 (10:03→21:59)
[2018-04-04] MEDS: BRIMONIDINE 0.15% OPH SOLN 1 DROP/DROPS BOTTLE BOTH EYES SCH ×2 (10:04→21:58)
[2018-04-04] MEDS: GABAPENTIN 50 MG/ML 30 ML/BOTTLE PO SCH (10:04)
[2018-04-04] MEDS: RANITIDINE 150 MG/10 ML 30 ML BOTTLE PO SCH (10:08)
[2018-04-04] MEDS: POTASSIUM CHLORIDE 20 MEQ/15 ML UDCUP PO SCH (11:18)
[2018-04-04] MEDS: ENOXAPARIN 40 MG/0.4 ML SYRINGE SUBCUT SCH (14:47)
[2018-04-04] MEDS: POTASSIUM CHLORIDE 20 MEQ TABLET PO SCH (14:47)
[2018-04-04] MEDS: MENTHOL/ZINC OXIDE OINT 71 GM JAR TOP SCH ×2 (19:30→21:58)
[2018-04-04] MEDS: FAMOTIDINE 20 MG TABLET PO SCH (21:57)
[2018-04-04] MEDS: ROSUVASTATIN 10 MG TABLET PO SCH (21:58)
[2018-04-04] MEDS: GABAPENTIN 600 MG TABLET PO SCH (21:58)
[2018-04-05] MEDS: ALBUTEROL/IPRATROPIUM 3 ML NEB RESP TX SCH ×3 (00:06→13:43)
[2018-04-05] MEDS: ASPIRIN 325 MG TABLET PO SCH (09:14)
[2018-04-05] MEDS: POTASSIUM CHLORIDE 20 MEQ TABLET PO SCH (09:14)
[2018-04-05] MEDS: CYANOCOBALAMIN 500 MCG TABLET PO SCH (09:14)
[2018-04-05] MEDS: TOPIRAMATE 200 MG TABLET PO SCH (09:14)
[2018-04-05] MEDS: FAMOTIDINE 20 MG TABLET PO SCH (09:14)
[2018-04-05] MEDS: CHOLECALCIFEROL 1,000 UNIT TABLET PO SCH (09:14)
[2018-04-05] MEDS: GABAPENTIN 600 MG TABLET PO SCH (09:14)
[2018-04-05] MEDS: LINACLOTIDE 145 MCG CAPSULE PO SCH (09:14)
[2018-04-05] MEDS: BRIMONIDINE 0.15% OPH SOLN 1 DROP/DROPS BOTTLE BOTH EYES SCH (09:14)
[2018-04-05] MEDS: amLODIPine 5 MG TABLET PO SCH (09:14)
[2018-04-05] MEDS: PRIMIDONE 50 MG TABLET PO SCH (09:14)
[2018-04-05] MEDS: MENTHOL/ZINC OXIDE OINT 71 GM JAR TOP SCH (09:15)
[2018-04-05] MEDS: BUDESONIDE/FORMOTEROL 80-4.5 INHALER 6.9 GM INH SCH (09:16)
[2018-04-05] MEDS: levETIRAcetam 250 MG TABLET PO SCH (09:18)
[2018-04-05 13:01] VITALS: BP 115/71
[2018-04-05] MEDS: ENOXAPARIN 40 MG/0.4 ML SYRINGE SUBCUT SCH (13:44)
== END 2018-04-05 13:02 | disposition swing bed (61) | DRG 392 ==
LOC: N.ED 09:01 → N.EDINP 14:26 → SUATTDRO 14:26 → N.5E 14:40
PROVIDERS: ADMIT Internal Medicine; ATTEND Internal Medicine

== ENCOUNTER 2018-06-07 13:19 | Inpatient (IN) ==
[2018-06-07 15:36] LABS: Basophils % 0.6 % (0.0-0.8); Eosinophils # 0.1 10*3/uL (0.0-0.87); Eosinophils % 1.5 % (0.00-10.9); Immature Granulocytes % 0.3 %; Immature Granulocytes Absolute 0.02 #; Lymphocytes # 1.4 10*3/uL (1.4-4.0); Lymphocytes % 19.3 % (21.3-54.2); Mean Corpuscular HGB Conc 32.4 GM/DL (32-36); Mean Corpuscular Hemoglobin 24 PG (27-34); Mean Corpuscular Volume 74.2 FL (87-102); Monocytes # 0.4 10*3/uL (0.11-0.8); Neutrophils # 5.2 10*3/uL (1.4-7.4); Neutrophils % 72.3 % (38.7-73.9); Platelet Count 150 T/CUMM (130-400); Red Blood Count 4.58 MC/CUMM (3.8-5.5); Red Cell Distribution Width 16.8 % (9.3-17.3); White Blood Count 7.2 T/CUMM (4-12)
[2018-06-07 15:49] LABS: PT Patient Result 10.1 SECS; Partial Thromboplastin Time 24.9 SECS (0-40)
[2018-06-07 16:05] LABS: Alanine Aminotransferase 15 U/L (13-56); Albumin 3.5 G/DL (3.4-5.0); Alkaline Phosphatase 111 U/L (45-117); Aspartate Amino Transferase 17 U/L (0-37); Bilirubin,Total < 0.39 MG/DL (0.2-1.0); Blood Urea Nitrogen 8 MG/DL (7-18); Calcium 8.6 MG/DL (8.5-10.1); Glucose 80 MG/DL (74-106); Potassium 3.6 MMOL/L (3.5-5.1); Sodium 143 MMOL/L (136-145); Total Protein 7.4 G/DL (6.4-8.3); Troponin I < 0.015 NG/ML (0.00-0.045)
[2018-06-07 16:32] LABS: Apearance,Urine CLEAR (Clear); Bilirubin,Urine Negative (Negative); Blood, Urine Negative (Negative); Glucose,Urine (UA) Negative (Negative); Ketones,Urine Negative (Negative); Nitrite,Urine Negative (Negative); Protein,Urine Negative; RBC,Urine <1 /HPF (0-4); Squamous Epithelial Cell,Urine Occasional /HPF (0-10); Urine Color Straw (Yellow); Urine Specific Gravity 1.003 (1.001-1.035); Urine Urobilinogen < 2.0 EU/DL (0.2-1.0)
[2018-06-07 16:42] LABS: Barbiturates Screen,Urine Positive (Negative); Benzodiazepines Screen,Urine Negative (Negative); Cannabinoid Screen,Urine Negative (Negative); Opiate Screen,Urine Negative (Negative); Phencyclidine Screen,Urine Negative (Negative)
[2018-06-07] MEDS ORDERED: ONDANSETRON 4 MG/2 ML VIAL IV STA (16:52)
[2018-06-07] MEDS ORDERED: ALUM/MAG/SIMETH/LIDO VISC 1:1 30 ML BOTTLE PO STA (16:52)
[2018-06-07] MEDS ORDERED: HYDROmorphone 2 MG/1 ML VIAL IV STA (16:52)
[2018-06-07] MEDS ORDERED: NITROGLYCERIN 2% OINT 1 INCH/GM PACK TOP STA (16:52)
[2018-06-07] MEDS ORDERED: BUDESONIDE/FORMOTEROL 80-4.5 INHALER 6.9 GM INH PRN (17:45)
[2018-06-07] MEDS ORDERED: ALBUTEROL 2.5 MG/3 ML NEB RESP TX PRN (17:45)
[2018-06-07] MEDS ORDERED: OLOPATADINE HCL BOTH EYES PRN (17:45)
[2018-06-07] MEDS ORDERED: POLYETHYLENE GLYCOL POWDER 17 GM PACK PO PRN (17:45)
[2018-06-07] MEDS ORDERED: NITROGLYCERIN SL 0.4 MG TABLET SL PRN (17:45)
[2018-06-07] MEDS ORDERED: CALCIUM CARBONATE CHEW 500 MG TABLET PO PRN (17:45)
[2018-06-07] MEDS: POTASSIUM CHLORIDE 8 MEQ CAPSULE PO SCH (21:35)
[2018-06-07] MEDS: METOCLOPRAMIDE 5 MG TABLET PO SCH (21:36)
[2018-06-07] MEDS: levETIRAcetam 500 MG TABLET PO SCH (21:36)
[2018-06-07] MEDS: GABAPENTIN 300 MG CAPSULE PO SCH (21:37)
[2018-06-07] MEDS: PRIMIDONE 50 MG TABLET PO SCH (21:37)
[2018-06-07] MEDS: ROSUVASTATIN 10 MG TABLET PO SCH (21:37)
[2018-06-07] MEDS: TOPIRAMATE 200 MG TABLET PO SCH (21:53)
[2018-06-07] MEDS: BRIMONIDINE 0.15% OPH SOLN 1 DROP/DROPS BOTTLE BOTH EYES SCH (22:23)
[2018-06-08 04:22] LABS: Basophils % 0.6 % (0.0-0.8); Eosinophils # 0.1 10*3/uL (0.0-0.87); Eosinophils % 2.4 % (0.00-10.9); Hematocrit 29.5 VOL% (35.7-47.0); Hemoglobin 9.5 GM/DL (12.0-16.0); Immature Granulocytes % 0.2 %; Immature Granulocytes Absolute 0.01 #; Lymphocytes # 1.3 10*3/uL (1.4-4.0); Lymphocytes % 28.1 % (21.3-54.2); Mean Corpuscular HGB Conc 32.2 GM/DL (32-36); Mean Corpuscular Hemoglobin 24 PG (27-34); Mean Corpuscular Volume 72.8 FL (87-102); Monocytes # 0.3 10*3/uL (0.11-0.8); Monocytes % 7.1 % (1.7-12.7); Neutrophils # 2.9 10*3/uL (1.4-7.4); Neutrophils % 61.6 % (38.7-73.9); Platelet Count 132 T/CUMM (130-400); Red Blood Count 4.05 MC/CUMM (3.8-5.5); Red Cell Distribution Width 16.3 % (9.3-17.3); White Blood Count 4.7 T/CUMM (4-12)
[2018-06-08 04:48] LABS: Bilirubin,Total 0.4 MG/DL (0.2-1.0); Calcium 8.1 MG/DL (8.5-10.1); Osmolality,Calculated 279.1 MOS/KG (273-304); Potassium 3.8 MMOL/L (3.5-5.1); Total Protein 6.1 G/DL (6.4-8.3)
[2018-06-08 05:01] LABS: Platelet Estimate Normal; Polychromasia Few; Target Cells Few
[2018-06-08] MEDS: BUTALBITAL/ACETAMIN/CAFFEINE 50-325-40 MG TABLET PO PRN ×3 (06:01→22:23)
[2018-06-08] MEDS: GABAPENTIN 300 MG CAPSULE PO SCH ×2 (09:41→22:21)
[2018-06-08] MEDS: TOPIRAMATE 200 MG TABLET PO SCH ×2 (09:41→22:22)
[2018-06-08] MEDS: CHOLECALCIFEROL 1,000 UNIT TABLET PO SCH (09:41)
[2018-06-08] MEDS: levETIRAcetam 500 MG TABLET PO SCH ×2 (09:42→22:22)
[2018-06-08] MEDS: ASPIRIN EC 325 MG TABLET PO SCH (09:42)
[2018-06-08] MEDS: POTASSIUM CHLORIDE 8 MEQ CAPSULE PO SCH ×2 (09:42→22:22)
[2018-06-08] MEDS: PRIMIDONE 50 MG TABLET PO SCH ×2 (09:42→22:23)
[2018-06-08] MEDS: CYANOCOBALAMIN 500 MCG TABLET PO SCH (09:42)
[2018-06-08] MEDS: METOCLOPRAMIDE 5 MG TABLET PO SCH (09:42)
[2018-06-08] MEDS: BRIMONIDINE 0.15% OPH SOLN 1 DROP/DROPS BOTTLE BOTH EYES SCH ×2 (09:43→22:33)
[2018-06-08] MEDS: LINACLOTIDE 145 MCG CAPSULE PO SCH (09:43)
[2018-06-08] MEDS: PANTOPRAZOLE 40 MG TABLET PO SCH (16:29)
[2018-06-08] MEDS: SODIUM CHLORIDE 0.45% 1,000 ML IV SCH (16:29)
[2018-06-08] MEDS: ROSUVASTATIN 10 MG TABLET PO SCH (22:21)
[2018-06-08] MEDS: DILTIAZEM CD 120 MG CAPSULE PO SCH (22:22)
[2018-06-09] MEDS: ASPIRIN EC 325 MG TABLET PO SCH (09:28)
[2018-06-09] MEDS: POTASSIUM CHLORIDE 8 MEQ CAPSULE PO SCH ×2 (09:28→21:38)
[2018-06-09] MEDS: GABAPENTIN 300 MG CAPSULE PO SCH ×2 (09:28→21:38)
[2018-06-09] MEDS: CYANOCOBALAMIN 500 MCG TABLET PO SCH (09:28)
[2018-06-09] MEDS: levETIRAcetam 500 MG TABLET PO SCH ×2 (09:28→21:38)
[2018-06-09] MEDS: BRIMONIDINE 0.15% OPH SOLN 1 DROP/DROPS BOTTLE BOTH EYES SCH ×2 (09:32→21:40)
[2018-06-09] MEDS: CHOLECALCIFEROL 1,000 UNIT TABLET PO SCH (09:32)
[2018-06-09] MEDS: TOPIRAMATE 200 MG TABLET PO SCH ×2 (09:32→21:38)
[2018-06-09] MEDS: PRIMIDONE 50 MG TABLET PO SCH ×2 (09:32→21:39)
[2018-06-09] MEDS: LINACLOTIDE 145 MCG CAPSULE PO SCH (09:32)
[2018-06-09] MEDS: POLYETHYLENE GLYCOL POWDER 17 GM PACK PO SCH ×2 (09:41→21:39)
[2018-06-09] MEDS: SODIUM CHLORIDE 0.45% 1,000 ML IV SCH (12:26)
[2018-06-09] MEDS: PANTOPRAZOLE 40 MG TABLET PO SCH (17:12)
[2018-06-09] MEDS: DILTIAZEM CD 120 MG CAPSULE PO SCH (21:38)
[2018-06-09] MEDS: ROSUVASTATIN 10 MG TABLET PO SCH (21:39)
[2018-06-10] MEDS: BUTALBITAL/ACETAMIN/CAFFEINE 50-325-40 MG TABLET PO PRN (02:27)
[2018-06-10] MEDS: GABAPENTIN 300 MG CAPSULE PO SCH ×2 (10:31→21:17)
[2018-06-10] MEDS: POTASSIUM CHLORIDE 8 MEQ CAPSULE PO SCH ×2 (10:31→21:17)
[2018-06-10] MEDS: CYANOCOBALAMIN 500 MCG TABLET PO SCH (10:31)
[2018-06-10] MEDS: levETIRAcetam 500 MG TABLET PO SCH ×2 (10:31→21:19)
[2018-06-10] MEDS: TOPIRAMATE 200 MG TABLET PO SCH ×2 (10:31→21:17)
[2018-06-10] MEDS: POLYETHYLENE GLYCOL POWDER 17 GM PACK PO SCH ×2 (10:32→21:18)
[2018-06-10] MEDS: PRIMIDONE 50 MG TABLET PO SCH ×2 (10:32→21:22)
[2018-06-10] MEDS: CHOLECALCIFEROL 1,000 UNIT TABLET PO SCH (10:32)
[2018-06-10] MEDS: ASPIRIN EC 325 MG TABLET PO SCH (10:33)
[2018-06-10] MEDS: BRIMONIDINE 0.15% OPH SOLN 1 DROP/DROPS BOTTLE BOTH EYES SCH ×2 (10:33→21:16)
[2018-06-10] MEDS: LINACLOTIDE 145 MCG CAPSULE PO SCH (10:41)
[2018-06-10] MEDS: PANTOPRAZOLE 40 MG TABLET PO SCH (16:34)
[2018-06-10] MEDS: DILTIAZEM CD 120 MG CAPSULE PO SCH (21:16)
[2018-06-10] MEDS: ACETAMINOPHEN 325 MG TABLET PO PRN (21:18)
[2018-06-10] MEDS: ROSUVASTATIN 10 MG TABLET PO SCH (21:22)
[2018-06-11 03:26] LABS: Basophils % 0.5 % (0.0-0.8); Eosinophils # 0.3 10*3/uL (0.0-0.87); Eosinophils % 4.7 % (0.00-10.9); Hematocrit 29.7 VOL% (35.7-47.0); Hemoglobin 9.7 GM/DL (12.0-16.0); Immature Granulocytes % 0.2 %; Immature Granulocytes Absolute 0.01 #; Lymphocytes # 1.3 10*3/uL (1.4-4.0); Lymphocytes % 20.6 % (21.3-54.2); Mean Corpuscular HGB Conc 32.7 GM/DL (32-36); Mean Corpuscular Hemoglobin 24 PG (27-34); Mean Corpuscular Volume 72.6 FL (87-102); Monocytes # 0.3 10*3/uL (0.11-0.8); Monocytes % 5.1 % (1.7-12.7); Neutrophils # 4.4 10*3/uL (1.4-7.4); Neutrophils % 68.9 % (38.7-73.9); Platelet Count 135 T/CUMM (130-400); Red Blood Count 4.09 MC/CUMM (3.8-5.5); Red Cell Distribution Width 16.5 % (9.3-17.3); White Blood Count 6.4 T/CUMM (4-12)
[2018-06-11 03:50] LABS: Calcium 8.2 MG/DL (8.5-10.1); Osmolality,Calculated 282.8 MOS/KG (273-304); Potassium 3.8 MMOL/L (3.5-5.1)
[2018-06-11 05:01] LABS: Hypochromasia Slight; Polychromasia Few
[2018-06-11 05:02] LABS: Platelet Estimate Decreased
[2018-06-11] MEDS: GABAPENTIN 300 MG CAPSULE PO SCH ×2 (09:55→21:04)
[2018-06-11] MEDS: TOPIRAMATE 200 MG TABLET PO SCH ×2 (09:55→21:04)
[2018-06-11] MEDS: ASPIRIN EC 325 MG TABLET PO SCH (09:56)
[2018-06-11] MEDS: POTASSIUM CHLORIDE 8 MEQ CAPSULE PO SCH ×2 (09:56→21:04)
[2018-06-11] MEDS: LINACLOTIDE 145 MCG CAPSULE PO SCH (09:56)
[2018-06-11] MEDS: CYANOCOBALAMIN 500 MCG TABLET PO SCH (09:56)
[2018-06-11] MEDS: levETIRAcetam 500 MG TABLET PO SCH ×2 (09:56→21:03)
[2018-06-11] MEDS: PRIMIDONE 50 MG TABLET PO SCH ×2 (09:57→21:03)
[2018-06-11] MEDS: CHOLECALCIFEROL 1,000 UNIT TABLET PO SCH (09:57)
[2018-06-11] MEDS: BRIMONIDINE 0.15% OPH SOLN 1 DROP/DROPS BOTTLE BOTH EYES SCH ×2 (09:58→21:03)
[2018-06-11] MEDS: POLYETHYLENE GLYCOL POWDER 17 GM PACK PO SCH ×2 (09:58→21:02)
[2018-06-11] MEDS ORDERED: MAGNESIUM SULF RIDER 2 GM in PREMIX 1 EACH IV PRN (10:34)
[2018-06-11] MEDS ORDERED: POTASSIUM CHLORIDE RIDER 10 MEQ in PREMIX 1 EACH IV PRN (10:34)
[2018-06-11] MEDS ORDERED: diphenhydrAMINE CAP 25 MG CAPSULE PO ONE (11:00)
[2018-06-11] MEDS ORDERED: SODIUM CHLORIDE 0.45% 1,000 ML IV SCH (11:00)
[2018-06-11] MEDS ORDERED: DIAZEPAM 5 MG TABLET PO ONE (11:00)
[2018-06-11] MEDS ORDERED: LIDOCAINE 1% 20 ML VIAL ONE (12:59)
[2018-06-11] MEDS ORDERED: ZALEPLON 5 MG CAPSULE PO PRN (13:22)
[2018-06-11] MEDS ORDERED: HYDROmorphone 2 MG/1 ML VIAL IV PRN (13:22)
[2018-06-11] MEDS ORDERED: ONDANSETRON 4 MG/2 ML VIAL IV PRN (13:22)
[2018-06-11] MEDS: PANTOPRAZOLE 40 MG TABLET PO SCH (18:15)
[2018-06-11] MEDS: ROSUVASTATIN 10 MG TABLET PO SCH (21:05)
[2018-06-11] MEDS: DILTIAZEM CD 120 MG CAPSULE PO SCH (21:10)
[2018-06-12] MEDS: ACETAMINOPHEN 325 MG TABLET PO PRN (01:37)
[2018-06-12 04:48] LABS: Basophils % 0.7 % (0.0-0.8); Eosinophils # 0.3 10*3/uL (0.0-0.87); Eosinophils % 5.4 % (0.00-10.9); Hematocrit 28.6 VOL% (35.7-47.0); Hemoglobin 9.2 GM/DL (12.0-16.0); Immature Granulocytes % 0.5 %; Immature Granulocytes Absolute 0.03 #; Lymphocytes # 1.4 10*3/uL (1.4-4.0); Lymphocytes % 22.6 % (21.3-54.2); Mean Corpuscular HGB Conc 32.2 GM/DL (32-36); Mean Corpuscular Hemoglobin 24 PG (27-34); Mean Corpuscular Volume 73.5 FL (87-102); Monocytes # 0.4 10*3/uL (0.11-0.8); Monocytes % 6.2 % (1.7-12.7); Neutrophils % 64.6 % (38.7-73.9); Platelet Count 143 T/CUMM (130-400); Red Blood Count 3.89 MC/CUMM (3.8-5.5); Red Cell Distribution Width 16.5 % (9.3-17.3); White Blood Count 6.2 T/CUMM (4-12)
[2018-06-12 05:17] LABS: Potassium 3.8 MMOL/L (3.5-5.1)
[2018-06-12] MEDS: GABAPENTIN 300 MG CAPSULE PO SCH (09:24)
[2018-06-12] MEDS: LINACLOTIDE 145 MCG CAPSULE PO SCH (09:24)
[2018-06-12] MEDS: POTASSIUM CHLORIDE 8 MEQ CAPSULE PO SCH (09:24)
[2018-06-12] MEDS: ASPIRIN EC 325 MG TABLET PO SCH (09:25)
[2018-06-12] MEDS: CHOLECALCIFEROL 1,000 UNIT TABLET PO SCH (09:25)
[2018-06-12] MEDS: TOPIRAMATE 200 MG TABLET PO SCH (09:25)
[2018-06-12] MEDS: POLYETHYLENE GLYCOL POWDER 17 GM PACK PO SCH (09:25)
[2018-06-12] MEDS: PRIMIDONE 50 MG TABLET PO SCH (09:25)
[2018-06-12] MEDS: levETIRAcetam 500 MG TABLET PO SCH (09:25)
[2018-06-12] MEDS: CYANOCOBALAMIN 500 MCG TABLET PO SCH (09:25)
[2018-06-12] MEDS: BRIMONIDINE 0.15% OPH SOLN 1 DROP/DROPS BOTTLE BOTH EYES SCH (09:26)
[2018-06-12 12:02] VITALS: BP 99/61
== END 2018-06-12 15:45 | disposition home health service (06) ==
LOC: N.ED 13:19 → SUATTDRO 17:43 → N.EDINP 17:43 → N.TELEN 18:56
PROVIDERS: ADMIT Internal Medicine Geriatric Medicine; ATTEND Internal Medicine

== ENCOUNTER 2018-10-15 04:08 | Inpatient (IN) ==
[2018-10-15 05:31] LABS: Basophils % 0.6 % (0.0-0.8); Eosinophils # 0.2 10*3/uL (0.0-0.87); Eosinophils % 2.7 % (0.00-10.9); Hematocrit 30.4 VOL% (35.7-47.0); Hemoglobin 9.6 GM/DL (12.0-16.0); Immature Granulocytes % 0.3 %; Immature Granulocytes Absolute 0.02 #; Lymphocytes # 1.6 10*3/uL (1.4-4.0); Lymphocytes % 22.5 % (21.3-54.2); Mean Corpuscular HGB Conc 31.6 GM/DL (32-36); Mean Corpuscular Hemoglobin 21 PG (27-34); Mean Corpuscular Volume 67.9 FL (87-102); Monocytes # 0.5 10*3/uL (0.11-0.8); Monocytes % 7.3 % (1.7-12.7); Neutrophils # 4.8 10*3/uL (1.4-7.4); Neutrophils % 66.6 % (38.7-73.9); Platelet Count 148 T/CUMM (130-400); Red Blood Count 4.48 MC/CUMM (3.8-5.5); Red Cell Distribution Width 18.9 % (9.3-17.3); White Blood Count 7.1 T/CUMM (4-12)
[2018-10-15 05:38] LABS: INR 0.9; PT Patient Result 10.3 SECS
[2018-10-15 05:51] LABS: Burr Cells Slight; Hypochromasia Slight; Ovalocytes Slight
[2018-10-15 05:52] LABS: Platelet Estimate Adequate
[2018-10-15] MEDS ORDERED: MORPHINE 4 MG/1 ML VIAL IV STA (06:01)
[2018-10-15 06:02] LABS: Albumin 3.3 G/DL (3.4-5.0); Bilirubin,Total 0.5 MG/DL (0.2-1.0); Calcium 8.7 MG/DL (8.5-10.1); Osmolality,Calculated 275.5 MOS/KG (273-304); Potassium 3.7 MMOL/L (3.5-5.1); Total Protein 6.9 G/DL (6.4-8.3)
[2018-10-15] MEDS ORDERED: MORPHINE 4 MG/1 ML VIAL IV ONE (08:00)
[2018-10-15] MEDS ORDERED: MORPHINE 4 MG/1 ML VIAL IV PRN (08:03)
[2018-10-15] MEDS ORDERED: ALBUTEROL 2.5 MG/3 ML NEB RESP TX PRN ×2 (08:08→15:00)
[2018-10-15] MEDS ORDERED: SODIUM CHLORIDE 0.9% 500 ML IV STA (08:28)
[2018-10-15] MEDS ORDERED: OLOPATADINE HCL BOTH EYES PRN (08:46)
[2018-10-15] MEDS ORDERED: NITROGLYCERIN SL 0.4 MG TABLET SL PRN (08:46)
[2018-10-15] MEDS ORDERED: BUDESONIDE/FORMOTEROL 80-4.5 INHALER 6.9 GM INH PRN (08:46)
[2018-10-15] MEDS ORDERED: METOCLOPRAMIDE 10 MG/10 ML UDCUP PO PRN (08:46)
[2018-10-15] MEDS ORDERED: POLYETHYLENE GLYCOL POWDER 17 GM PACK PO PRN (08:46)
[2018-10-15] MEDS: PANTOPRAZOLE 40 MG VIAL IV SCH (09:15)
[2018-10-15] MEDS: SODIUM CHLORIDE 0.9% 1,000 ML IV SCH (09:20)
[2018-10-15 09:35] LABS: Basophils % 0.3 % (0.0-0.8); Eosinophils % 0.2 % (0.00-10.9); Hematocrit 26.4 VOL% (35.7-47.0); Hemoglobin 8.6 GM/DL (12.0-16.0); Immature Granulocytes % 0.6 %; Immature Granulocytes Absolute 0.06 #; Lymphocytes # 0.7 10*3/uL (1.4-4.0); Lymphocytes % 6.5 % (21.3-54.2); Mean Corpuscular HGB Conc 32.6 GM/DL (32-36); Mean Corpuscular Hemoglobin 22 PG (27-34); Monocytes # 0.3 10*3/uL (0.11-0.8); Monocytes % 3.2 % (1.7-12.7); Neutrophils # 8.9 10*3/uL (1.4-7.4); Neutrophils % 89.2 % (38.7-73.9); Red Blood Count 3.94 MC/CUMM (3.8-5.5); Red Cell Distribution Width 18.3 % (9.3-17.3)
[2018-10-15 09:38] LABS: Platelet Count 158 T/CUMM (130-400)
[2018-10-15 09:55] LABS: Hypochromasia 1+; Platelet Estimate Adequate
[2018-10-15] MEDS: POTASSIUM CHLORIDE 8 MEQ CAPSULE PO SCH ×2 (12:16→21:29)
[2018-10-15] MEDS: PRIMIDONE 50 MG TABLET PO SCH ×2 (12:16→21:29)
[2018-10-15] MEDS: ASPIRIN EC 325 MG TABLET PO SCH (12:16)
[2018-10-15] MEDS: DOCUSATE SODIUM 100 MG CAPSULE PO SCH ×2 (12:16→21:29)
[2018-10-15] MEDS: TOPIRAMATE 200 MG TABLET PO SCH ×2 (12:17→21:29)
[2018-10-15] MEDS: BRIMONIDINE 0.15% OPH SOLN 1 DROP/DROPS BOTTLE BOTH EYES SCH ×2 (12:17→21:29)
[2018-10-15] MEDS: GABAPENTIN 300 MG CAPSULE PO SCH ×2 (12:17→21:30)
[2018-10-15] MEDS: RANOLAZINE 500 MG TABLET PO SCH ×2 (12:17→21:29)
[2018-10-15] MEDS ORDERED: DEXTROSE 50% 25 GM/50 ML SYRINGE IV PRN (16:25)
[2018-10-15] MEDS ORDERED: GLUCAGON 1 MG VIAL IM PRN (16:25)
[2018-10-15] MEDS: INSULIN REGULAR 100 UNIT/ML SUBCUT SCH ×2 (19:11→21:31)
[2018-10-15] MEDS: DILTIAZEM CD 120 MG CAPSULE PO SCH (21:29)
[2018-10-15] MEDS: ROSUVASTATIN 10 MG TABLET PO SCH (21:30)
[2018-10-16] MEDS: MORPHINE 4 MG/1 ML VIAL IV PRN ×4 (01:43→19:19)
[2018-10-16] MEDS: ONDANSETRON 4 MG/2 ML VIAL IV PRN ×3 (01:45→19:18)
[2018-10-16] MEDS: SODIUM CHLORIDE 0.9% 1,000 ML IV SCH ×2 (01:48→12:23)
[2018-10-16 05:58] LABS: Basophils % 0.4 % (0.0-0.8); Eosinophils % 0.1 % (0.00-10.9); Hematocrit 26.3 VOL% (35.7-47.0); Hemoglobin 8.5 GM/DL (12.0-16.0); Immature Granulocytes % 0.7 %; Immature Granulocytes Absolute 0.05 #; Lymphocytes # 1.3 10*3/uL (1.4-4.0); Lymphocytes % 16.4 % (21.3-54.2); Mean Corpuscular HGB Conc 32.3 GM/DL (32-36); Mean Corpuscular Hemoglobin 22 PG (27-34); Mean Corpuscular Volume 67.6 FL (87-102); Monocytes # 0.7 10*3/uL (0.11-0.8); Neutrophils # 5.6 10*3/uL (1.4-7.4); Neutrophils % 73.4 % (38.7-73.9); Platelet Count 143 T/CUMM (130-400); Red Blood Count 3.89 MC/CUMM (3.8-5.5); Red Cell Distribution Width 18.4 % (9.3-17.3); White Blood Count 7.6 T/CUMM (4-12)
[2018-10-16 06:15] LABS: Osmolality,Calculated 273.7 MOS/KG (273-304); Potassium 3.6 MMOL/L (3.5-5.1); Risk Ratio 1.37; VLDL CHOLESTEROL 8.2 MG/DL
[2018-10-16 06:20] LABS: Hypochromasia Slight; Platelet Estimate Adequate; Target Cells Few
[2018-10-16] MEDS: LINACLOTIDE 145 MCG CAPSULE PO SCH (07:41)
[2018-10-16] MEDS: INSULIN REGULAR 100 UNIT/ML SUBCUT SCH ×4 (08:11→20:41)
[2018-10-16] MEDS: PANTOPRAZOLE 40 MG VIAL IV SCH (08:55)
[2018-10-16] MEDS: PRIMIDONE 50 MG TABLET PO SCH ×2 (08:56→20:50)
[2018-10-16] MEDS: TOPIRAMATE 200 MG TABLET PO SCH ×2 (08:56→20:49)
[2018-10-16] MEDS: BRIMONIDINE 0.15% OPH SOLN 1 DROP/DROPS BOTTLE BOTH EYES SCH ×2 (08:58→20:49)
[2018-10-16] MEDS ORDERED: CLINDAMYCIN INJ 900 MG in PREMIX 1 EACH IV ONE (09:00)
[2018-10-16] MEDS: ASPIRIN EC 325 MG TABLET PO SCH (09:11)
[2018-10-16] MEDS: POTASSIUM CHLORIDE 8 MEQ CAPSULE PO SCH ×2 (09:11→20:49)
[2018-10-16] MEDS: DOCUSATE SODIUM 100 MG CAPSULE PO SCH ×2 (09:11→20:50)
[2018-10-16] MEDS: GABAPENTIN 300 MG CAPSULE PO SCH ×2 (09:11→20:50)
[2018-10-16] MEDS: RANOLAZINE 500 MG TABLET PO SCH ×2 (09:11→20:50)
[2018-10-16] MEDS ORDERED: PROMETHAZINE 25 MG/1 ML VIAL IM PRN (12:27)
[2018-10-16] MEDS ORDERED: MAGNESIUM HYDROXIDE SUSP 30 ML UDCUP PO PRN (12:27)
[2018-10-16] MEDS ORDERED: CALCIUM CARB PO PRN (12:30)
[2018-10-16] MEDS ORDERED: MAGNESIUM HYDROX PO PRN (12:30)
[2018-10-16] MEDS ORDERED: CHLORPHENIRAMINE MALEATE 4 MG PO PRN (12:30)
[2018-10-16] MEDS ORDERED: BUTALBITAL/ACETAMIN/CAFFEINE 50-325-40 MG TABLET PO PRN (12:30)
[2018-10-16] MEDS ORDERED: fentaNYL 100 MCG/2 ML VIAL ONE (12:38)
[2018-10-16] MEDS ORDERED: BUPIVACAINE SPINAL 0.75% 2 ML AMP SPINAL ONE (12:38)
[2018-10-16] MEDS ORDERED: MIDAZOLAM 2 MG/2 ML VIAL ONE (12:38)
[2018-10-16] MEDS ORDERED: ONDANSETRON 4 MG/2 ML VIAL ONE (12:39)
[2018-10-16] MEDS ORDERED: KETAMINE 500 MG/10 ML VIAL ONE (12:39)
[2018-10-16] MEDS: LACTATED RINGERS 1,000 ML IV SCH (16:09)
[2018-10-16] MEDS: CLINDAMYCIN INJ 900 MG in PREMIX 1 EACH IV SCH (18:05)
[2018-10-16] MEDS: levETIRAcetam 500 MG TABLET PO SCH (20:49)
[2018-10-16] MEDS: ROSUVASTATIN 10 MG TABLET PO SCH (20:50)
[2018-10-16] MEDS: DILTIAZEM CD 120 MG CAPSULE PO SCH (20:50)
[2018-10-17] MEDS: CLINDAMYCIN INJ 900 MG in PREMIX 1 EACH IV SCH ×2 (01:00→10:24)
[2018-10-17] MEDS: SODIUM CHLORIDE 0.9% 1,000 ML IV SCH (01:02)
[2018-10-17] MEDS: ONDANSETRON 4 MG/2 ML VIAL IV PRN (05:22)
[2018-10-17] MEDS: MORPHINE 4 MG/1 ML VIAL IV PRN (05:23)
[2018-10-17 06:28] LABS: Basophils % 0.2 % (0.0-0.8); Hematocrit 21.3 VOL% (35.7-47.0); Hemoglobin 7.1 GM/DL (12.0-16.0); Immature Granulocytes % 0.3 %; Immature Granulocytes Absolute 0.03 #; Mean Corpuscular HGB Conc 33.3 GM/DL (32-36); Mean Corpuscular Hemoglobin 22 PG (27-34); Mean Corpuscular Volume 66.8 FL (87-102); Monocytes # 0.8 10*3/uL (0.11-0.8); Monocytes % 8.2 % (1.7-12.7); Neutrophils # 7.6 10*3/uL (1.4-7.4); Neutrophils % 80.3 % (38.7-73.9); Platelet Count 128 T/CUMM (130-400); Red Blood Count 3.19 MC/CUMM (3.8-5.5); Red Cell Distribution Width 18.1 % (9.3-17.3); White Blood Count 9.4 T/CUMM (4-12)
[2018-10-17 06:48] LABS: Calcium 7.8 MG/DL (8.5-10.1); Osmolality,Calculated 274.7 MOS/KG (273-304); Potassium 3.4 MMOL/L (3.5-5.1)
[2018-10-17 06:53] LABS: Platelet Estimate Decreased; Polychromasia Few
[2018-10-17] MEDS ORDERED: SODIUM CHLORIDE 0.9% 1,000 ML IV PRN (07:31)
[2018-10-17] MEDS ORDERED: diphenhydrAMINE 50 MG/1 ML VIAL IV SCH (08:00)
[2018-10-17] MEDS ORDERED: FUROSEMIDE 20 MG/2 ML VIAL IV SCH (08:00)
[2018-10-17] MEDS ORDERED: ACETAMINOPHEN 325 MG TABLET PO SCH (08:00)
[2018-10-17] MEDS: INSULIN REGULAR 100 UNIT/ML SUBCUT SCH ×4 (08:27→21:55)
[2018-10-17] MEDS: BRIMONIDINE 0.15% OPH SOLN 1 DROP/DROPS BOTTLE BOTH EYES SCH ×2 (10:25→21:53)
[2018-10-17] MEDS: LINACLOTIDE 145 MCG CAPSULE PO SCH (18:42)
[2018-10-17] MEDS: DOCUSATE SODIUM 100 MG CAPSULE PO SCH ×2 (18:42→21:54)
[2018-10-17] MEDS: ASPIRIN EC 325 MG TABLET PO SCH (18:42)
[2018-10-17] MEDS: PRIMIDONE 50 MG TABLET PO SCH ×2 (18:43→21:56)
[2018-10-17] MEDS: levETIRAcetam 500 MG TABLET PO SCH ×2 (18:43→21:55)
[2018-10-17] MEDS: GABAPENTIN 300 MG CAPSULE PO SCH ×2 (18:43→21:56)
[2018-10-17] MEDS: POTASSIUM CHLORIDE 8 MEQ CAPSULE PO SCH ×2 (18:43→21:54)
[2018-10-17] MEDS: CYANOCOBALAMIN 500 MCG TABLET PO SCH (18:44)
[2018-10-17] MEDS: RANOLAZINE 500 MG TABLET PO SCH ×2 (18:44→21:54)
[2018-10-17] MEDS: TOPIRAMATE 200 MG TABLET PO SCH ×2 (18:44→21:54)
[2018-10-17] MEDS: CHOLECALCIFEROL 1,000 UNIT TABLET PO SCH (18:44)
[2018-10-17] MEDS: LACTATED RINGERS 1,000 ML IV SCH (18:45)
[2018-10-17] MEDS: DILTIAZEM CD 120 MG CAPSULE PO SCH (21:54)
[2018-10-17] MEDS: ROSUVASTATIN 10 MG TABLET PO SCH (21:54)
[2018-10-18 04:52] LABS: Basophils # 0.1 10*3/uL (0.0-0.2); Basophils % 0.5 % (0.0-0.8); Eosinophils % 0.4 % (0.00-10.9); Hematocrit 26.7 VOL% (35.7-47.0); Hemoglobin 8.8 GM/DL (12.0-16.0); Immature Granulocytes % 0.4 %; Immature Granulocytes Absolute 0.04 #; Lymphocytes # 1.4 10*3/uL (1.4-4.0); Lymphocytes % 14.5 % (21.3-54.2); Mean Corpuscular Hemoglobin 24 PG (27-34); Mean Corpuscular Volume 73.2 FL (87-102); Monocytes # 0.9 10*3/uL (0.11-0.8); Monocytes % 9.8 % (1.7-12.7); Neutrophils # 6.9 10*3/uL (1.4-7.4); Neutrophils % 74.4 % (38.7-73.9); Red Blood Count 3.65 MC/CUMM (3.8-5.5); Red Cell Distribution Width 21.5 % (9.3-17.3); White Blood Count 9.3 T/CUMM (4-12)
[2018-10-18 04:53] LABS: Platelet Count 107 T/CUMM (130-400)
[2018-10-18] MEDS: MORPHINE 4 MG/1 ML VIAL IV PRN (07:10)
[2018-10-18] MEDS: SODIUM CHLORIDE 0.9% 1,000 ML IV SCH ×2 (07:46→07:47)
[2018-10-18] MEDS: INSULIN REGULAR 100 UNIT/ML SUBCUT SCH ×4 (08:33→20:56)
[2018-10-18] MEDS: LINACLOTIDE 145 MCG CAPSULE PO SCH (08:34)
[2018-10-18] MEDS: DOCUSATE SODIUM 100 MG CAPSULE PO SCH ×2 (08:34→20:56)
[2018-10-18] MEDS: POTASSIUM CHLORIDE 8 MEQ CAPSULE PO SCH ×2 (08:34→20:55)
[2018-10-18] MEDS: GABAPENTIN 300 MG CAPSULE PO SCH ×2 (08:34→20:55)
[2018-10-18] MEDS: PRIMIDONE 50 MG TABLET PO SCH ×2 (08:34→20:55)
[2018-10-18] MEDS: ASPIRIN EC 325 MG TABLET PO SCH (08:34)
[2018-10-18] MEDS: RANOLAZINE 500 MG TABLET PO SCH ×2 (08:35→20:55)
[2018-10-18] MEDS: TOPIRAMATE 200 MG TABLET PO SCH ×2 (08:37→20:55)
[2018-10-18] MEDS: CHOLECALCIFEROL 1,000 UNIT TABLET PO SCH (08:37)
[2018-10-18] MEDS: CYANOCOBALAMIN 500 MCG TABLET PO SCH (08:37)
[2018-10-18] MEDS ORDERED: PROPOFOL 200 MG/20 ML VIAL IV ONE (10:00)
[2018-10-18] MEDS ORDERED: LIDOCAINE 100 MG/5 ML SYRINGE ONE (10:00)
[2018-10-18] MEDS: BRIMONIDINE 0.15% OPH SOLN 1 DROP/DROPS BOTTLE BOTH EYES SCH ×2 (11:44→20:56)
[2018-10-18] MEDS: LACTATED RINGERS 1,000 ML IV SCH (15:58)
[2018-10-18] MEDS: PANTOPRAZOLE 40 MG TABLET PO SCH (19:23)
[2018-10-18] MEDS: ZINC OXIDE PASTE 113 GM TUBE TOP SCH ×2 (20:54)
[2018-10-18] MEDS: DILTIAZEM CD 120 MG CAPSULE PO SCH (20:55)
[2018-10-18] MEDS: ROSUVASTATIN 10 MG TABLET PO SCH (20:55)
[2018-10-19] MEDS: SODIUM CHLORIDE 0.9% 1,000 ML IV SCH ×3 (01:21→18:27)
[2018-10-19 05:42] LABS: Basophils % 0.4 % (0.0-0.8); Eosinophils # 0.2 10*3/uL (0.0-0.87); Eosinophils % 2.1 % (0.00-10.9); Hematocrit 29.1 VOL% (35.7-47.0); Hemoglobin 9.4 GM/DL (12.0-16.0); Immature Granulocytes % 0.4 %; Immature Granulocytes Absolute 0.04 #; Lymphocytes # 1.1 10*3/uL (1.4-4.0); Lymphocytes % 12.1 % (21.3-54.2); Mean Corpuscular HGB Conc 32.3 GM/DL (32-36); Mean Corpuscular Hemoglobin 24 PG (27-34); Mean Corpuscular Volume 72.9 FL (87-102); Monocytes # 0.8 10*3/uL (0.11-0.8); Monocytes % 8.5 % (1.7-12.7); Neutrophils # 7.2 10*3/uL (1.4-7.4); Neutrophils % 76.5 % (38.7-73.9); Platelet Count 118 T/CUMM (130-400); Red Blood Count 3.99 MC/CUMM (3.8-5.5); Red Cell Distribution Width 22.2 % (9.3-17.3); White Blood Count 9.4 T/CUMM (4-12)
[2018-10-19 06:21] LABS: Hypochromasia 2+; Microcytosis 1+; Spherocytes Slight
[2018-10-19 06:22] LABS: Platelet Estimate Decreased; Target Cells Slight
[2018-10-19] MEDS: INSULIN REGULAR 100 UNIT/ML SUBCUT SCH ×4 (08:05→21:54)
[2018-10-19] MEDS: PRIMIDONE 50 MG TABLET PO SCH ×2 (09:26→21:54)
[2018-10-19] MEDS: RANOLAZINE 500 MG TABLET PO SCH ×2 (09:27→21:54)
[2018-10-19] MEDS: ASPIRIN EC 325 MG TABLET PO SCH (09:28)
[2018-10-19] MEDS: DOCUSATE SODIUM 100 MG CAPSULE PO SCH ×2 (09:28→21:54)
[2018-10-19] MEDS: LINACLOTIDE 145 MCG CAPSULE PO SCH (09:29)
[2018-10-19] MEDS: BRIMONIDINE 0.15% OPH SOLN 1 DROP/DROPS BOTTLE BOTH EYES SCH ×2 (09:31→21:51)
[2018-10-19] MEDS: POTASSIUM CHLORIDE 8 MEQ CAPSULE PO SCH ×2 (09:31→21:53)
[2018-10-19] MEDS: GABAPENTIN 300 MG CAPSULE PO SCH ×2 (09:31→21:52)
[2018-10-19] MEDS: PANTOPRAZOLE 40 MG TABLET PO SCH (09:31)
[2018-10-19] MEDS: TOPIRAMATE 200 MG TABLET PO SCH ×2 (09:31→21:54)
[2018-10-19] MEDS: CHOLECALCIFEROL 1,000 UNIT TABLET PO SCH (09:31)
[2018-10-19] MEDS: CYANOCOBALAMIN 500 MCG TABLET PO SCH (09:31)
[2018-10-19] MEDS: ZINC OXIDE PASTE 113 GM TUBE TOP SCH ×2 (10:15→21:54)
[2018-10-19] MEDS ORDERED: TUBERCULIN SKIN TEST 0.1 ML SYRINGE INTRADERM ONE (15:08)
[2018-10-19] MEDS: LACTATED RINGERS 1,000 ML IV SCH (21:50)
[2018-10-19] MEDS: DILTIAZEM CD 120 MG CAPSULE PO SCH (21:53)
[2018-10-19] MEDS: ROSUVASTATIN 10 MG TABLET PO SCH (21:53)
[2018-10-20] MEDS: SODIUM CHLORIDE 0.9% 1,000 ML IV SCH ×2 (06:24→20:32)
[2018-10-20] MEDS: LINACLOTIDE 145 MCG CAPSULE PO SCH (09:06)
[2018-10-20] MEDS: POTASSIUM CHLORIDE 8 MEQ CAPSULE PO SCH ×2 (09:06→20:29)
[2018-10-20] MEDS: GABAPENTIN 300 MG CAPSULE PO SCH (09:06)
[2018-10-20] MEDS: RANOLAZINE 500 MG TABLET PO SCH ×2 (09:07→20:30)
[2018-10-20] MEDS: CYANOCOBALAMIN 500 MCG TABLET PO SCH (09:07)
[2018-10-20] MEDS: DOCUSATE SODIUM 100 MG CAPSULE PO SCH ×2 (09:07→20:30)
[2018-10-20] MEDS: CHOLECALCIFEROL 1,000 UNIT TABLET PO SCH (09:07)
[2018-10-20] MEDS: ASPIRIN EC 325 MG TABLET PO SCH (09:08)
[2018-10-20] MEDS: PANTOPRAZOLE 40 MG TABLET PO SCH (09:08)
[2018-10-20] MEDS: PRIMIDONE 50 MG TABLET PO SCH ×2 (09:08→20:30)
[2018-10-20] MEDS: BRIMONIDINE 0.15% OPH SOLN 1 DROP/DROPS BOTTLE BOTH EYES SCH ×2 (09:08→20:31)
[2018-10-20] MEDS: TOPIRAMATE 200 MG TABLET PO SCH ×2 (09:08→20:33)
[2018-10-20] MEDS: ZINC OXIDE PASTE 113 GM TUBE TOP SCH ×2 (09:08→20:32)
[2018-10-20] MEDS: INSULIN REGULAR 100 UNIT/ML SUBCUT SCH ×4 (09:09→20:31)
[2018-10-20] MEDS: LACTATED RINGERS 1,000 ML IV SCH (11:40)
[2018-10-20] MEDS ORDERED: NALOXONE 0.4 MG/ML VIAL ONE (12:42)
[2018-10-20 14:24] LABS: Basophils % 0.5 % (0.0-0.8); Eosinophils # 0.3 10*3/uL (0.0-0.87); Eosinophils % 4.9 % (0.00-10.9); Hematocrit 26.5 VOL% (35.7-47.0); Hemoglobin 8.5 GM/DL (12.0-16.0); Immature Granulocytes % 0.3 %; Immature Granulocytes Absolute 0.02 #; Lymphocytes # 0.8 10*3/uL (1.4-4.0); Lymphocytes % 13.8 % (21.3-54.2); Mean Corpuscular HGB Conc 32.1 GM/DL (32-36); Mean Corpuscular Hemoglobin 24 PG (27-34); Mean Corpuscular Volume 74.2 FL (87-102); Monocytes # 0.4 10*3/uL (0.11-0.8); Monocytes % 6.6 % (1.7-12.7); Neutrophils # 4.5 10*3/uL (1.4-7.4); Neutrophils % 73.9 % (38.7-73.9); Platelet Count 133 T/CUMM (130-400); Red Blood Count 3.57 MC/CUMM (3.8-5.5); Red Cell Distribution Width 22.9 % (9.3-17.3); White Blood Count 6.1 T/CUMM (4-12)
[2018-10-20 15:16] LABS: Calcium 7.9 MG/DL (8.5-10.1); Osmolality,Calculated 282.1 MOS/KG (273-304); Potassium 3.4 MMOL/L (3.5-5.1)
[2018-10-20] MEDS: ROSUVASTATIN 10 MG TABLET PO SCH (20:29)
[2018-10-20] MEDS: DILTIAZEM CD 120 MG CAPSULE PO SCH (20:30)
[2018-10-21] MEDS: INSULIN REGULAR 100 UNIT/ML SUBCUT SCH ×4 (07:30→23:11)
[2018-10-21] MEDS: BRIMONIDINE 0.15% OPH SOLN 1 DROP/DROPS BOTTLE BOTH EYES SCH ×2 (09:45→20:58)
[2018-10-21] MEDS: TOPIRAMATE 200 MG TABLET PO SCH ×2 (09:46→20:58)
[2018-10-21] MEDS: DOCUSATE SODIUM 100 MG CAPSULE PO SCH ×2 (09:47→20:57)
[2018-10-21] MEDS: POTASSIUM CHLORIDE 8 MEQ CAPSULE PO SCH ×2 (09:48→20:58)
[2018-10-21] MEDS: CHOLECALCIFEROL 1,000 UNIT TABLET PO SCH (09:48)
[2018-10-21] MEDS: RANOLAZINE 500 MG TABLET PO SCH ×2 (09:48→20:56)
[2018-10-21] MEDS: LINACLOTIDE 145 MCG CAPSULE PO SCH (09:48)
[2018-10-21] MEDS: CYANOCOBALAMIN 500 MCG TABLET PO SCH (09:49)
[2018-10-21] MEDS: PANTOPRAZOLE 40 MG TABLET PO SCH (09:49)
[2018-10-21] MEDS: ASPIRIN EC 325 MG TABLET PO SCH (09:50)
[2018-10-21] MEDS: PRIMIDONE 50 MG TABLET PO SCH ×2 (09:50→20:57)
[2018-10-21] MEDS: ZINC OXIDE PASTE 113 GM TUBE TOP SCH ×2 (09:56→20:58)
[2018-10-21] MEDS: LACTATED RINGERS 1,000 ML IV SCH (10:03)
[2018-10-21] MEDS ORDERED: BISACODYL 5 MG TABLET PO ONE (12:14)
[2018-10-21] MEDS: SODIUM CHLORIDE 0.9% 1,000 ML IV SCH (12:58)
[2018-10-21] MEDS: ROSUVASTATIN 10 MG TABLET PO SCH (20:56)
[2018-10-21] MEDS: DILTIAZEM CD 120 MG CAPSULE PO SCH (20:58)
[2018-10-22] MEDS: SODIUM CHLORIDE 0.9% 1,000 ML IV SCH ×2 (03:13→17:16)
[2018-10-22 05:31] LABS: Basophils % 0.6 % (0.0-0.8); Eosinophils # 0.3 10*3/uL (0.0-0.87); Eosinophils % 4.8 % (0.00-10.9); Hemoglobin 8.7 GM/DL (12.0-16.0); Immature Granulocytes % 0.6 %; Immature Granulocytes Absolute 0.04 #; Lymphocytes % 15.5 % (21.3-54.2); Mean Corpuscular HGB Conc 32.2 GM/DL (32-36); Mean Corpuscular Hemoglobin 24 PG (27-34); Mean Corpuscular Volume 73.6 FL (87-102); Monocytes # 0.4 10*3/uL (0.11-0.8); Monocytes % 6.6 % (1.7-12.7); Neutrophils # 4.8 10*3/uL (1.4-7.4); Neutrophils % 71.9 % (38.7-73.9); Platelet Count 144 T/CUMM (130-400); Red Blood Count 3.67 MC/CUMM (3.8-5.5); Red Cell Distribution Width 23.3 % (9.3-17.3); White Blood Count 6.7 T/CUMM (4-12)
[2018-10-22 05:54] LABS: Hypochromasia 1+; Platelet Estimate Adequate
[2018-10-22 05:55] LABS: Acanthocytes Few; Microcytosis Slight
[2018-10-22 06:04] LABS: Calcium 7.9 MG/DL (8.5-10.1); Osmolality,Calculated 286.6 MOS/KG (273-304); Potassium 3.2 MMOL/L (3.5-5.1)
[2018-10-22] MEDS: INSULIN REGULAR 100 UNIT/ML SUBCUT SCH ×4 (07:37→21:39)
[2018-10-22] MEDS: BRIMONIDINE 0.15% OPH SOLN 1 DROP/DROPS BOTTLE BOTH EYES SCH ×2 (08:37→20:37)
[2018-10-22] MEDS: ASPIRIN EC 325 MG TABLET PO SCH (08:38)
[2018-10-22] MEDS: DOCUSATE SODIUM 100 MG CAPSULE PO SCH ×2 (08:38→20:33)
[2018-10-22] MEDS: TOPIRAMATE 200 MG TABLET PO SCH ×2 (08:38→20:33)
[2018-10-22] MEDS: RANOLAZINE 500 MG TABLET PO SCH ×2 (08:38→20:33)
[2018-10-22] MEDS: CHOLECALCIFEROL 1,000 UNIT TABLET PO SCH (08:38)
[2018-10-22] MEDS: POTASSIUM CHLORIDE 8 MEQ CAPSULE PO SCH (08:38)
[2018-10-22] MEDS: PRIMIDONE 50 MG TABLET PO SCH ×2 (08:39→20:33)
[2018-10-22] MEDS: PANTOPRAZOLE 40 MG TABLET PO SCH (08:39)
[2018-10-22] MEDS: CYANOCOBALAMIN 500 MCG TABLET PO SCH (08:39)
[2018-10-22] MEDS: LINACLOTIDE 145 MCG CAPSULE PO SCH (08:40)
[2018-10-22] MEDS: ZINC OXIDE PASTE 113 GM TUBE TOP SCH ×2 (14:00→20:32)
[2018-10-22] MEDS: ROSUVASTATIN 10 MG TABLET PO SCH (20:32)
[2018-10-22] MEDS: DILTIAZEM CD 120 MG CAPSULE PO SCH (20:33)
[2018-10-23] MEDS: INSULIN REGULAR 100 UNIT/ML SUBCUT SCH ×4 (07:51→22:31)
[2018-10-23] MEDS: RANOLAZINE 500 MG TABLET PO SCH ×2 (09:13→20:55)
[2018-10-23] MEDS: TOPIRAMATE 200 MG TABLET PO SCH ×2 (09:13→20:55)
[2018-10-23] MEDS: LINACLOTIDE 145 MCG CAPSULE PO SCH (09:13)
[2018-10-23] MEDS: DOCUSATE SODIUM 100 MG CAPSULE PO SCH ×2 (09:13→20:55)
[2018-10-23] MEDS: ASPIRIN EC 325 MG TABLET PO SCH (09:13)
[2018-10-23] MEDS: PANTOPRAZOLE 40 MG TABLET PO SCH (09:13)
[2018-10-23] MEDS: POTASSIUM CHLORIDE 20 MEQ TABLET PO SCH (09:13)
[2018-10-23] MEDS: PRIMIDONE 50 MG TABLET PO SCH ×2 (09:13→20:55)
[2018-10-23] MEDS: BRIMONIDINE 0.15% OPH SOLN 1 DROP/DROPS BOTTLE BOTH EYES SCH ×2 (09:18→20:55)
[2018-10-23] MEDS: ZINC OXIDE PASTE 113 GM TUBE TOP SCH ×2 (09:18→20:55)
[2018-10-23] MEDS: CYANOCOBALAMIN 500 MCG TABLET PO SCH (09:20)
[2018-10-23] MEDS: CHOLECALCIFEROL 1,000 UNIT TABLET PO SCH (09:20)
[2018-10-23] MEDS: DILTIAZEM CD 120 MG CAPSULE PO SCH (20:55)
[2018-10-23] MEDS: ROSUVASTATIN 10 MG TABLET PO SCH (20:55)
[2018-10-24] MEDS: LACTATED RINGERS 1,000 ML IV SCH (00:24)
[2018-10-24 05:56] LABS: Basophils % 0.5 % (0.0-0.8); Eosinophils # 0.3 10*3/uL (0.0-0.87); Eosinophils % 3.4 % (0.00-10.9); Hematocrit 27.2 VOL% (35.7-47.0); Hemoglobin 8.9 GM/DL (12.0-16.0); Immature Granulocytes % 0.5 %; Immature Granulocytes Absolute 0.04 #; Lymphocytes # 1.3 10*3/uL (1.4-4.0); Lymphocytes % 15.6 % (21.3-54.2); Mean Corpuscular HGB Conc 32.7 GM/DL (32-36); Mean Corpuscular Hemoglobin 24 PG (27-34); Mean Corpuscular Volume 73.5 FL (87-102); Monocytes # 0.5 10*3/uL (0.11-0.8); Monocytes % 6.3 % (1.7-12.7); Neutrophils % 73.7 % (38.7-73.9); Platelet Count 210 T/CUMM (130-400); Red Cell Distribution Width 23.7 % (9.3-17.3); White Blood Count 8.1 T/CUMM (4-12)
[2018-10-24 06:19] LABS: Calcium 8.4 MG/DL (8.5-10.1); Potassium 3.3 MMOL/L (3.5-5.1)
[2018-10-24 06:24] LABS: Hypochromasia 2+; Ovalocytes 1+; Platelet Estimate Normal; Target Cells 2+
[2018-10-24] MEDS: INSULIN REGULAR 100 UNIT/ML SUBCUT SCH ×2 (07:38→11:44)
[2018-10-24 08:20] VITALS: BP 137/78
[2018-10-24] MEDS: RANOLAZINE 500 MG TABLET PO SCH (09:07)
[2018-10-24] MEDS: POTASSIUM CHLORIDE 20 MEQ TABLET PO SCH (09:08)
[2018-10-24] MEDS: ZINC OXIDE PASTE 113 GM TUBE TOP SCH (09:09)
[2018-10-24] MEDS: ASPIRIN EC 325 MG TABLET PO SCH (09:09)
[2018-10-24] MEDS: PRIMIDONE 50 MG TABLET PO SCH (09:09)
[2018-10-24] MEDS: DOCUSATE SODIUM 100 MG CAPSULE PO SCH (09:09)
[2018-10-24] MEDS: PANTOPRAZOLE 40 MG TABLET PO SCH (09:09)
[2018-10-24] MEDS: CHOLECALCIFEROL 1,000 UNIT TABLET PO SCH (09:09)
[2018-10-24] MEDS: CYANOCOBALAMIN 500 MCG TABLET PO SCH (09:09)
[2018-10-24] MEDS: BRIMONIDINE 0.15% OPH SOLN 1 DROP/DROPS BOTTLE BOTH EYES SCH (10:00)
[2018-10-24] MEDS: TOPIRAMATE 200 MG TABLET PO SCH (10:00)
[2018-10-24] MEDS: LINACLOTIDE 145 MCG CAPSULE PO SCH (10:00)
== END 2018-10-24 11:42 | disposition home health service (06) | DRG 481 ==
LOC: EDUNIT# → N.ED 04:08 → SUATTDRO 07:50 → N.EDINP 07:50 → N.3E 10:04
PROVIDERS: ADMIT Internal Medicine; ATTEND Hospitalist